=== PATIENT | male | born 1955 | race Caucasian/White ===

== ENCOUNTER 2016-11-11 23:38 | Inpatient (IN) | payer OTHER ==
[2016-11-11] MEDS ORDERED: ALBUTEROL SO4 0.083% IH SOL 2.5 MG/3 ML VIAL.NEB. NEB PRN (23:47)
[2016-11-11] MEDS ORDERED: methylPREDNISolone NA SUCC 125 MG/2 ML VIAL IVPB ONE (23:47)
[2016-11-11] MEDS ORDERED: ALBUTEROL SO4 2.5/IPRATROPIUM 0.5 INH SOL 3 ML VIAL.NEB. NEB ONE (23:52)
--- NOTE | 2016-11-11 23:54 | PDOC ---
History of Present Illness - History of Present Illness Initial Comments: 11/12/16 00:28 Patient is a 61 year old male with significant medical hx of Down's Syndrome ( severe cognitive deficiency), kyphosis, scoliosis, MR, GI bleeds, anemia, chronic respiratory failure, asthma, sepsis, seizure disorder, GERD, and COPD who has been sent to the ED from [place] for low O2Sat and fever. Patient's O2Sat was between 86-87% on room air at the skilled nursing; his fever was measured at 100.2 while in the ED. senior living papers report the patient has also been excreting thick yellowish tracheal secretions. The patient is nonverbal and unable to provide history. The patient has had a chronic tracheostomy placement since 03/07/16. Patient was admitted last month for aspiration pneumonia. 11/12/16 01:35 The patient is normally maintained at 3-4 liters of O2 for his tracheostomy but today the patient's pulse oximetry was unable to get above 88% with 4 liters. Patient also has had copious amounts of tracheal secretions. <Anais Santoyo - Last Filed: 11/12/16 01:35> <Maryam Montejo - Last Filed: 11/12/16 02:25> - General Stated Complaint: DIFFICULTY BREATHING Time Seen by Provider: 11/11/16 23:41 Past History <Anais Santoyo - Last Filed: 11/12/16 01:35> - Past Medical History Anemia: Yes Asthma: Yes COPD: Yes Disorders: Yes (GERD) Seizures: Yes - Immunization History Immunization Up to Date: Yes - Psycho/Social/Smoking Cessation Hx Anxiety: No Suicidal Ideation: No Smoking History: Unknown if ever smoked Have you smoked in the past 12 months: No Hx Alcohol Use: No Drug/Substance Use Hx: No Substance Use Type: None <Maryam Montejo - Last Filed: 11/12/16 02:25> - Past Medical History Allergies/Adverse Reactions: Allergies Allergy/AdvReac Type Severity Reaction Status Date / Time No Known Allergies Allergy Verified 10/02/16 20:22 Home Medications: Ambulatory Orders Albuterol 2.5/Ipratropium 0.5 [Duoneb -] 1 neb IH QID 05/02/16 Levetiracetam [Keppra Oral Solution -] 500 mg GT BID 05/02/16 Glycopyrrolate [Robinul -] 1 mg PEG TID 05/03/16 Magnesium Hydrox 2400MG/30Ml [Milk of Magnesia -] 30 ml GT ONCE PRN 05/03/16 Metoclopramide HCl 10 mg PEG BID 05/03/16 Zinc Oxide 0 gm TP BID PRN 05/03/16 Montelukast Na [Singulair -] 10 mg GT HS 07/21/16 Ferrous Sulfate [Feosol] 325 mg NGT BID #60 tablet 07/23/16 Budesonide [Pulmicort 0.25 mg Nebulizer -] 1 neb NEB BID 08/27/16 Clotrimazole [Lotrimin -] 1 applic TP BID 08/27/16 Ranitidine [Zantac -] 150 mg GT BID 08/27/16 Scopolamine Hydrobromide [Transderm-Scop -] 1 patch TD Q72H 08/27/16 Sucralfate Oral Suspension [Carafate Oral Suspension -] 1 gm GT BID 08/27/16 Unobtainable 09/28/16 Review of Systems - Review of Systems Comments:: 11/12/16 00:39 Unable to assess. <Anais Santoyo - Last Filed: 11/12/16 01:35> *Physical Exam - Vital Signs Last Vital Signs Temp Pulse Resp BP Pulse Ox 100.2 F H 99 H 105/46 100 11/11/16 23:58 11/11/16 23:58 11/11/16 23:58 11/11/16 23:58 - Physical Exam Comments: 11/12/16 00:40 GENERAL: Non-verbal. Profound mental retardation. No acute distress. HEENT: Normocephalic, atraumatic. PERRLA, EOMI. No conjunctival pallor. Sclera are non- icteric. Moist mucous membranes. Oropharynx is clear. NECK: Supple. Full ROM. No JVD. Carotid pulses 2+ and symmetric, without bruits. No thyromegaly. No lymphadenopathy. CARDIOVASCULAR: Regular rate and rhythm. No murmurs, rubs, or gallops. Distal pulses are 2+ and symmetric. PULMONARY: Chronic tracheostomy. Accessory muscle use with respiration. Rhonchorous breath sounds to all four quadrants. ABDOMINAL: G-tube placement. Soft. Non-tender. Non-distended. No rebound or guarding. No organomegaly. Normoactive bowel sounds. MUSCULOSKELETAL: Contracted limbs. No CVA tenderness. EXTREMITIES: Contracted limbs. No cyanosis. No clubbing. No edema. No calf tenderness. SKIN: Warm and dry. Normal capillary refill. No rashes. No jaundice. NEUROLOGICAL: Non-verbal. Non-ambulatory. <Anais Santoyo - Last Filed: 11/12/16 01:35> ED Treatment Course - LABORATORY CBC & Chemistry Diagram: 11/12/16 00:27 11/12/16 00:27 - Medications Given in the ED: ED Medications Discontinued Medications Generic Name Dose Route Start Last Admin Trade Name Freq PRN Reason Stop Dose Admin Methylprednisolone Sodium Succinate 125 mg 11/11/16 23:47 11/12/16 00:03 Solu-Medrol - IVPB 11/11/16 23:48 125 mg ONCE ONE Administration <Anais Santoyo - Last Filed: 11/12/16 01:35> - LABORATORY CBC & Chemistry Diagram: 11/12/16 00:27 11/12/16 00:27 - RADIOLOGY Radiology Studies Ordered: Category Date Time Status CHEST X-RAY PORTABLE* [RAD] Stat Radiology 11/11/16 23:48 Ordered <Maryam Montejo - Last Filed: 11/12/16 02:25> Medical Decision Making - Medical Decision Making 11/12/16 02:21 61-year-old male brought in by ambulance from [facility] for hypoxia and a tracheitis. He normally is maintained on 3-4 L O2 trach collar and has pulse ox of 93% or greater normally -However this evening they noted that on 4 L O2. Hhs pulse ox was only in the mid 80s and he had copious thick yellow trach secretions and required multiple episodes of suctioning Temperature 100.2 Paramedics suctioned about 100 mL of thick secretions from his trach -. Chest x-rays no appreciable infiltrate. CBC shows a normal white count of 7 EKG was normal sinus rhythm Patient is receiving pulmonary toilet/trach suctioning/, respiratory treatments , but still requires increased oxygenation to maintain a pulse ox above 90% Will admit to hospitalist 11/12/16 02:25 Note that the patient is DNR and that his sister is actively involved in making medical decisions on his behalf. She is his healthcare proxy <Maryam Montejo - Last Filed: 11/12/16 02:25> *DC/Admit/Observation/Transfer - Attestations Scribe Attestion: 11/12/16 00:44 Documentation prepared by Anais Santoyo, acting as senior medical director for Maryam Montejo MD. <Anais Santoyo - Last Filed: 11/12/16 01:35> - Discharge Dispostion Admit: Yes <Maryam Montejo - Last Filed: 11/12/16 02:25> Diagnosis at time of Disposition: Asthma exacerbation, Tracheitis, Down syndrome, Acute on chronic respiratory failure with hypoxia and hypercapnia - Referrals Referrals: Landry Thomas Jr [Primary Care Provider] -
[2016-11-12 00:02] VITALS: BMI 24.0
[2016-11-12] MEDS ORDERED: methylPREDNISolone NA SUCC 125 MG/2 ML VIAL ONE (00:04)
[2016-11-12] MEDS ORDERED: ALBUTEROL SO4 0.083% IH SOL 2.5 MG/3 ML VIAL.NEB. NEB ONE (00:28)
[2016-11-12 00:37] LABS: BASOPHIL 2.1 % (0-2.0); MCHC 31.2 g/dl (32.0-35.9); MEAN CELL VOLUME 89.8 fl (80-96); MEAN PLT VOLUME 8.4 fl (7.5-11.1); NEUTROPHILS 61.9 % (42.8-82.8); PLATELET COUNT 326 K/MM3 (134-434); RDW 18.8 % (11.9-15.9); WHITE BLOOD COUNT 7.4 K/mm3 (4.0-10.0)
[2016-11-12 01:02] LABS: ALBUMIN 2.5 g/dl (3.4-5.0); ALK PHOS 71 U/L (45-117); ANION GAP 9 (8-16); BILIRUBIN,TOTAL 0.2 mg/dL (0.2-1.0); CALCIUM 7.9 mg/dL (8.5-10.1); CO2 27 mmol/L (21-32); CREATININE 0.6 mg/dL (0.7-1.3); GLUCOSE,RANDOM 96 mg/dL (74-106); SGOT/AST 18 U/L (15-37); SGPT/ALT 25 U/L (12-78)
[2016-11-12 01:03] LABS: TROPONIN I < 0.02 ng/ml (0.00-0.05)
--- NOTE | 2016-11-12 01:36 | PN ---
<ShemarMeme - Last Filed: 11/12/16 05:12> Teaching Attending Note ATTENDING PHYSICIAN STATEMENT I saw and evaluated the patient. I reviewed the resident's note and discussed the case with the resident. I agree with the resident's findings and plan as documented. SUBJECTIVE: 61 yo M, nonverbal, poor historian, who presents to the ED from [facility] for hypoxia and fever. As per intermediate record, the patient is normally maintained at 3-4 liters of O2 for his tracheostomy but today the patient's pulse oximetry was 88% with 4 liters O2. Paramedics noted increased tracheal secretions, around the trach collar, yellow and thick. Patient was brought in for further evaluation. The patient has a tracheostomy tube placed on 03/07/16. PMHx: Down's Syndrome (severe cognitive deficiency), kyphosis, scoliosis, MR, GI bleeds, anemia, chronic respiratory failure, asthma, sepsis, seizure disorder , GERD, and COPD OBJECTIVE: Physical Last Vital Signs Temp Pulse Resp BP Pulse Ox 100.2 F H 99 H 22 105/46 100 11/11/16 23:58 11/11/16 23:58 11/11/16 23:58 11/11/16 23:58 11/11/16 23:58 GENERAL: +Awake, nonverbal, sever MR. In no acute distress HEENT: Atraumatic. PERRLA, EOMI. Moist mucosa. No JVD LUNGS: + coarse breath sounds. + diffuse ronchi. HEART: + Tachycardic regular rate and rhythm, normal S1 and S2, no murmurs, rubs or gallops, peripheral pulses normal and equal bilaterally. ABDOMEN: Soft, nontender, normoactive bowel sounds. No guarding, no rebound. No masses EXTREMITIES: Normal inspection, Normal range of motion, no edema. No clubbing or cyanosis. NEUROLOGICAL: Cranial nerves II through XII grossly intact. Normal speech, normal gait, no focal sensorimotor deficits SKIN: Warm, Dry, normal turgor, no rashes or lesions noted. PSYCHIATRIC: Sever MR and nonverbal, unable to assess CBCD WBC 7.4 K/mm3 (4.0-10.0) D 11/12/16 00:27 RBC 3.43 M/mm3 (4.00-5.60) L 11/12/16 00:27 Hgb 9.6 GM/dL (11.7-16.9) L 11/12/16 00:27 Hct 30.8 % (35.4-49) L 11/12/16 00:27 MCV 89.8 fl (80-96) 11/12/16 00:27 MCHC 31.2 g/dl (32.0-35.9) L 11/12/16 00:27 RDW 18.8 % (11.9-15.9) H D 11/12/16 00:27 Plt Count 326 K/MM3 (134-434) D 11/12/16 00:27 MPV 8.4 fl (7.5-11.1) D 11/12/16 00:27 CMP Sodium 141 mmol/L (136-145) 11/12/16 00:27 Potassium 4.2 mmol/L (3.5-5.1) 11/12/16 00: Chloride 105 mmol/L (98-107) 11/12/16 00:27 Carbon Dioxide 27 mmol/L (21-32) 11/12/16 00:27 Anion Gap 9 (8-16) 11/12/16 00:27 BUN 13 mg/dL (7-18) D 11/12/16 00:27 Creatinine 0.6 mg/dL (0.7-1.3) L 11/12/16 00:27 Creat Clearance w eGFR > 60 (>60) 11/12/16 00:27 Calcium 7.9 mg/dL (8.5-10.1) L 11/12/16 00:27 Total Bilirubin 0.2 mg/dL (0.2-1.0) D 11/12/16 00:27 AST 18 U/L (15-37) 11/12/16 00:27 ALT 25 U/L (12-78) D 11/12/16 00:27 Alkaline Phosphatase 71 U/L (45-117) D 11/12/16 00:27 Total Protein 6.0 g/dl (6.4-8.2) L 11/12/16 00:27 Albumin 2.5 g/dl (3.4-5.0) L 11/12/16 00:27 Documentation prepared by Meme Staton, acting as medical delivery technician for Deepa Porras MD. <Deepa Porras - Last Filed: 11/12/16 07:02> Teaching Attending Note Name of Resident: Iva Jay ATTENDING PHYSICIAN STATEMENT A/P COPD exacerbation with possible HCAP Duoneb Humidified air Vanco, and zosyn tylenol VA PRN F/U Sputum and bld cultures Scopolamine patch and continue home medications
[2016-11-12] MEDS ORDERED: VANCOMYCIN 1,000 MG in DEXTROSE 5%-WATER - 250 ML IVPB ONE (03:00)
[2016-11-12] MEDS ORDERED: SODIUM CHLORIDE 1,000 ML IV SCH ×2 (03:00→16:10)
[2016-11-12] MEDS ORDERED: ALBUTEROL SO4 0.083% IH SOL 2.5 MG/3 ML VIAL.NEB. NEB SCH (03:00)
[2016-11-12] MEDS ORDERED: LEVOFLOXACIN 750 MG IVPB 150 ML IVPB ONE (03:01)
[2016-11-12] MEDS ORDERED: PIPERACILLIN/TAZOB 4.5 GM/100 ML PRE-DOCKED IVPB ONE ×2 (03:01→06:00)
--- NOTE | 2016-11-12 03:02 | HP ---
Addendum entered and electronically signed by Iva Jay RES 11/12/16 07: 21: guaiac + on rectal exam Addendum entered and electronically signed by Iva Jay RES 11/12/16 06: 31: Added to problem list Acute hypoxic respiratory failure -supplemental O2 -nebs -suction -Pulm consult -steroids -abx Original Note: CHIEF COMPLAINT: unable to verbalize PCP: Dr Thomas HISTORY OF PRESENT ILLNESS: This is a 61 yo M with PMH of Down's Syndrome with severe MR, COPD, asthma, chronic respiratory failure with trach (03/07/16), recent hospitalization for aspiration PNA last mo, GERD, kyphosis, scoliosis, GI bleeds, PEG, anemia, sepsis and seizure d/o who presents from [place] due to hypoxia 87% in baseline 4L and fever 100.2. Patient has also been noted to have increased thick yellow tracheal secretions. He is nonverbal and history is obtained from [facility] records and [facility]. Sister is health care proxy. Last mo he was treated by Dr Sims with clinda and zosyn. Also seen by Dr Claros ER course was notable for: (1)labs (2)cxr (3)albuterol, medrol 125 Recent Travel: none PAST MEDICAL HISTORY: as above PAST SURGICAL HISTORY: as above Social History: [place] resident Smoking: none Alcohol:none Drugs: none Family History: mother renal family; brother multiple myeloma Allergies No Known Allergies Allergy (Verified 10/02/16 20:22) HOME MEDICATIONS: Medication Instructions Recorded Albuterol 2.5/Ipratropium 0.5 1 neb IH QID 05/02/16 [Duoneb -] Levetiracetam [Keppra Oral 500 mg GT BID 05/02/16 Solution -] Glycopyrrolate [Robinul -] 1 mg PEG TID 05/03/16 Magnesium Hydrox 2400MG/30Ml [Milk 30 ml GT ONCE PRN 05/03/16 of Magnesia -] Metoclopramide HCl 10 mg PEG BID 05/03/16 Zinc Oxide 0 gm TP BID PRN 05/03/16 Montelukast Na [Singulair -] 10 mg GT HS 07/21/16 Ferrous Sulfate [Feosol] 325 mg NGT BID #60 tablet 07/23/16 Budesonide [Pulmicort 0.25 mg 1 neb NEB BID 08/27/16 Nebulizer -] Clotrimazole [Lotrimin -] 1 applic TP BID 08/27/16 Ranitidine [Zantac -] 150 mg GT BID 08/27/16 Scopolamine Hydrobromide 1 patch TD Q72H 08/27/16 [Transderm-Scop -] Sucralfate Oral Suspension 1 gm GT BID 08/27/16 [Carafate Oral Suspension -] Unobtainable 09/28/16 Selected Entries 11/11/16 23:58 Temperature 100.2 F H Pulse Rate 99 H Blood Pressure 105/46 O2 Sat by Pulse 100 Oximetry (%) Weight 115 lb REVIEW OF SYSTEMS unable to obtain as patient is nonverbal Laboratory Tests 11/12/16 11/12/16 11/12/16 00:27 00:27 00:27 WBC 7.4 D Hgb 9.6 L Hct 30.8 L Plt Count 326 D Sodium 141 Potassium 4.2 Chloride 105 Carbon Dioxide 27 Anion Gap 9 BUN 13 D Creatinine 0.6 L Creat Clearance w eGFR > 60 Random Glucose 96 Lactic Acid Calcium 7.9 L Total Bilirubin 0.2 D AST 18 ALT 25 D Alkaline Phosphatase 71 D Creatine Kinase 158 Creatine Kinase Index 1.1 CK-MB (CK-2) 1.781 CK-MB (CK-2) Rel Index Troponin I < 0.02 D Total Protein 6.0 L Albumin 2.5 L 11/12/16 11/12/16 00:27 01:40 WBC Hgb Hct Plt Count Sodium Potassium Chloride Carbon Dioxide Anion Gap BUN Creatinine Creat Clearance w eGFR Random Glucose Lactic Acid 1.198 Calcium Total Bilirubin AST ALT Alkaline Phosphatase Creatine Kinase Creatine Kinase Index CK-MB (CK-2) CK-MB (CK-2) Rel Index Cancelled Troponin I Total Protein Albumin PHYSICAL EXAMINATION GENERAL: Awake, nonverbal, sever MR HEAD: Normal with no signs of trauma. EYES: Pupils equal, round and reactive to light, extraocular movements intact, sclera anicteric, conjunctiva clear. EARS, NOSE, THROAT: Moist mucous membranes. NECK: supple without lymphadenopathy, JVD, or masses. LUNGS: coarse breath sounds, diffuse ronchi HEART: tachy rate and reg rhythm, normal S1 and S2 ABDOMEN: Soft, not distended, normoactive bowel sounds MUSCULOSKELETAL: No bony deformities UPPER EXTREMITIES: 2+ pulses, warm, well-perfused. No peripheral edema. LOWER EXTREMITIES: 2+ pulses, warm, well-perfused. No peripheral edema. NEUROLOGICAL: face grossly symmetrical PSYCHIATRIC: sever MR and nonverbal, unable to assess SKIN: Warm, dry ASSESSMENT/PLAN: This is a 61 yo M with PMH of Down's Syndrome with severe MR, COPD, asthma, chronic respiratory failure with trach (03/07/16), recent hospitalization for aspiration PNA last mo, GERD, kyphosis, scoliosis, GI bleeds, anemia, sepsis and seizure d/o who presents from [place] due to hypoxia 87% in baseline 4L and fever 100.2. increased thick yellow tracheal secretions. CXR: RML atelectasis with possible increased infiltrate compared to last one Institution acquired PNA -ran [facility] zosyn -NS@75 -suctions -nebs -daily cxr -blood and sputum culture, urine culture -on 10L now, wean to baseline 4L -ID consult COPD exacerbation -duoneb qid -singulair 10 -s/p medrol 125; start medrol 40 q6h; taper -abx -Pulm consult Anemia -at baseline -h/x GIB -guaiac + last mo -previously evaluated by Dr Sahni -family against endoscopic intervention -stool guaiac -trend h/h -transfuse as needed MR -continue home meds -hold Jevity feeds Asthma -nebs SZ d/o -kedimitrira FEN NS@ 75 lytes stable DVT GI PPX:hold a/c, scd, ppi jevity through ped Dispo: admit to [facility] Problem List - Problem (1) Anemia due to GI blood loss Code(s): D50.0 - IRON DEFICIENCY ANEMIA SECONDARY TO BLOOD LOSS (CHRONIC) (2) Aspiration pneumonia Code(s): J69.0 - PNEUMONITIS DUE TO INHALATION OF FOOD AND VOMIT (3) Down syndrome Code(s): Q90.9 - DOWN SYNDROME, UNSPECIFIED (4) Pneumonia Code(s): J18.9 - PNEUMONIA, UNSPECIFIED ORGANISM (5) Tracheostomy dependence Code(s): Z93.0 - TRACHEOSTOMY STATUS (6) Airway clearance impairment Code(s): R06.89 - OTHER ABNORMALITIES OF BREATHING (7) DVT prophylaxis Code(s): [id number] - (8) Flexion contractures Code(s): M24.50 - CONTRACTURE, UNSPECIFIED JOINT (9) GI bleed Code(s): K92.2 - GASTROINTESTINAL HEMORRHAGE, UNSPECIFIED (10) Mental retardation Code(s): F79 - UNSPECIFIED INTELLECTUAL DISABILITIES (11) Respiratory distress Code(s): R06.00 - DYSPNEA, UNSPECIFIED (12) Respiratory failure Code(s): J96.90 - RESPIRATORY FAILURE, UNSP, UNSP W HYPOXIA OR HYPERCAPNIA (13) Anemia Code(s): D64.9 - ANEMIA, UNSPECIFIED (14) Seizure disorder Code(s): G40.909 - EPILEPSY, UNSP, NOT INTRACTABLE, WITHOUT STATUS EPILEPTICUS (15) COPD exacerbation Code(s): J44.1 - CHRONIC OBSTRUCTIVE PULMONARY DISEASE W (ACUTE) EXACERBATION (16) Hospital-acquired pneumonia Code(s): J18.9 - PNEUMONIA, UNSPECIFIED ORGANISM Visit type - Emergency Visit Emergency Visit: Yes ED Registration Date: 11/12/16 Care time: The patient presented to the Emergency Department on the above date and was hospitalized for further evaluation of their emergent condition. - New Patient This patient is new to me today: Yes Date on this admission: 11/12/16 - Critical Care Critical Care patient: No
[2016-11-12] MEDS: methylPREDNISolone NA SUCC 40 MG/1 ML VIAL IVPB SCH ×2 (03:14→09:56)
[2016-11-12] MEDS ORDERED: VANCOMYCIN 1 GRAM (PRE-DOCKED) 250 ML IVPB ONE (03:15)
[2016-11-12] MEDS ORDERED: LEVOFLOXACIN 250 MG IVPB 50 ML IVPB ONE (03:16)
[2016-11-12] MEDS ORDERED: LEVOFLOXACIN 500 MG IVPB 100 ML IVPB ONE (03:16)
[2016-11-12] MEDS ORDERED: BISACODYL 10 MG SUPP.RECT RC PRN (05:19)
[2016-11-12] MEDS ORDERED: HEPARIN NA (PORCINE) 5,000 UNITS/ML 1ML VIAL SQ SCH (06:00)
[2016-11-12] MEDS: ALBUTEROL SO4 2.5/IPRATROPIUM 0.5 INH SOL 3 ML VIAL.NEB. NEB SCH ×3 (06:52→17:20)
[2016-11-12] MEDS ORDERED: PIPERACILLIN/TAZOB 3.375 GM 3.375 GM in DEXTROSE 5%-WATER - 50 ML IVPB ONE (07:20)
[2016-11-12 08:14] LABS: MCH 28.7 pg (25.7-33.7); MCHC 31.4 g/dl (32.0-35.9); MEAN CELL VOLUME 91.3 fl (80-96); MEAN PLT VOLUME 8.4 fl (7.5-11.1); PLATELET COUNT 315 K/MM3 (134-434); RDW 18.5 % (11.9-15.9); WHITE BLOOD COUNT 5.7 K/mm3 (4.0-10.0)
[2016-11-12 08:42] LABS: CALCIUM 8.3 mg/dL (8.5-10.1); CREATININE 0.8 mg/dL (0.7-1.3); MAGNESIUM 2.3 mg/dL (1.8-2.4); PHOSPHOROUS 3.6 mg/dL (2.5-4.9)
--- NOTE | 2016-11-12 09:35 | EKG ---
Test Reason : Blood Pressure : / mmHG Vent. Rate : 095 BPM Atrial Rate : 095 BPM P-R Int : 124 ms QRS Dur : 068 ms QT Int : 356 ms P-R-T Axes : 031 005 012 degrees QTc Int : 447 ms NORMAL SINUS RHYTHM NORMAL ECG WHEN COMPARED WITH ECG OF 02-OCT-2016 22:04, NO SIGNIFICANT CHANGE WAS FOUND Confirmed by PAMELA RICHARDSON MD ([id number]) on 11/12/2016 9:34:57 AM Referred By: Confirmed By:PAMELA RICHARDSON MD
[2016-11-12] MEDS: levETIRAcetam 500 MG/5 ML INJECTION VIAL IVPB SCH ×2 (09:59→22:35)
[2016-11-12] MEDS ORDERED: PANTOPRAZOLE SODIUM 40 MG in SODIUM CHLORIDE 100 ML IVPB SCH (10:00)
[2016-11-12] MEDS ORDERED: PANTOPRAZOLE SOD 40 MG SUSPENSION PACKET GT SCH (10:00)
[2016-11-12] MEDS: PANTOPRAZOLE SODIUM 40 MG/100 ML PRE-DOCKED IVPB SCH ×2 (10:00→18:54)
[2016-11-12] MEDS: SILVER SULFADIAZINE 1% TOP CREAM 400 GM JAR TP SCH ×2 (10:00→21:41)
[2016-11-12] MEDS: CHOLESTYRAMINE/ASPARTAME 4 GM PACKET GT SCH ×2 (10:00→22:40)
[2016-11-12] MEDS: SUCRALFATE 1 GM/10 ML UNIT DOSE CUPS GT SCH ×2 (10:00→21:38)
[2016-11-12] MEDS ORDERED: levETIRAcetam 500 MG/5 ML ORAL SOLUTION (UNIT-DOSE CUPS) GT SCH (10:00)
[2016-11-12] MEDS: GLYCOPYRROLATE 1 MG TABLET GT SCH ×3 (10:01→21:40)
[2016-11-12] MEDS: CLOTRIMAZOLE 1%TOPICAL SOLUTION 30 ML BOTTLE TP SCH ×2 (10:01→21:42)
[2016-11-12] MEDS: SCOPOLAMINE HYDROBROMIDE 1 PATCH PATCH.TD72 TD SCH (10:02)
[2016-11-12] MEDS: RANITIDINE HCL 150 MG/10 ML UNIT-DOSE CUP GT SCH ×2 (10:02→21:38)
[2016-11-12] MEDS ORDERED: ALBUTEROL SO4 2.5/IPRATROPIUM 0.5 INH SOL 3 ML VIAL.NEB. NEB PRN (10:25)
--- NOTE | 2016-11-12 10:41 | CONSULT ---
Consult Consult Specialty:: PULMONARY Referred by:: JERAD - History of Present Illness Chief Complaint: CONGESTED COUGH History of Present Illness: Patient is a 61 year old male with significant medical hx of Down's Syndrome ( severe cognitive deficiency), kyphosis, scoliosis, MR, GI bleeds, anemia, chronic respiratory failure, asthma, sepsis, seizure disorder, GERD, and COPD who has been sent to the ED from [place] for low O2Sat and fever. Patient's O2Sat was between 86-87% on room air at the [facility]; his fever was measured at 100.2 while in the ED. retirement papers report the patient has also been excreting thick yellowish tracheal secretions. The patient is nonverbal and unable to provide history. The patient has had a chronic tracheostomy placement since 03/07/16. Patient was admitted last month for aspiration pneumonia. - History Source History Provided By: Medical Record Limitations to Obtaining History: Clinical Condition - Past Medical History BOARD MEMBER: Yes: Seizure, Other (Downs Syndrome with severe cognitive deficiency) Pulmonary: Yes: Asthma, COPD Gastrointestinal: Yes: Constipation, GERD, Other (peg in place, chronic GI bleeding and propensity to fecal impaction) Heme/Onc: Yes: Anemia Psych: Yes: Other (Down's syndrome) Musculoskeletal: Yes: Other (scoliosis, atlantoaxial cervical spinal instability , contractures) - Past Surgical History Past Surgical History: Yes: Colonoscopy, Upper Endoscopy Additional Surgical History: TRACHEOSTOMY - Alcohol/Substance Use Hx Alcohol Use: No - Smoking History Smoking history: Never smoked Have you smoked in the past 12 months: No - Social History Usual Living Arrangement: Halfway ADL: Support Services Occupation: disabled History of Recent Travel: No Home Medications - Allergies Allergies/Adverse Reactions: Allergies Allergy/AdvReac Type Severity Reaction Status Date / Time No Known Allergies Allergy Verified 10/02/16 20:22 - Home Medications Home Medications: Ambulatory Orders Albuterol 2.5/Ipratropium 0.5 [Duoneb -] 1 neb IH QID 05/02/16 Levetiracetam [Keppra Oral Solution -] 500 mg GT BID 05/02/16 Glycopyrrolate [Robinul -] 1 mg GT TID 05/03/16 Magnesium Hydrox 2400MG/30Ml [Milk of Magnesia -] 30 ml GT DAILY PRN 05/03/16 Metoclopramide HCl 10 mg GT BID 05/03/16 Zinc Oxide 1 applic TP BID PRN 05/03/16 Montelukast Na [Singulair -] 10 mg GT HS 07/21/16 Budesonide [Pulmicort 0.25 mg Nebulizer -] 1 neb NEB BID 08/27/16 Clotrimazole [Lotrimin -] 1 applic TP BID 08/27/16 Ranitidine [Zantac -] 150 mg GT BID 08/27/16 Scopolamine Hydrobromide [Transderm-Scop -] 1 patch TD Q72H 08/27/16 Sucralfate Oral Suspension [Carafate Oral Suspension -] 1 gm GT BID 08/27/16 Bisacodyl Suppository [Dulcolax Suppository -] 10 mg RC DAILY PRN 11/12/16 Cholestyramine/Aspartame [Questran Light Packet -] 4 gm GT BID 11/12/16 Ferrous Sulfate [Feosol] 325 mg GT BID 11/12/16 Lactobacillus Acidophilus [Acidophilus] 1 each GT DAILY 11/12/16 Silver Sulfadiazine 1% Top Cr [Silvadene -] 1 applic TP BID 11/12/16 Family Disease History - Family Disease History Family Disease History: CA: Brother ( multiple myeloma), Other: Father ( colon polyp), Mother ( renal failure age 37) Review of Systems Unable to obtain ROS, reason: UNABLE Physical Exam Vital Sings: Vital Signs Temperature 99.1 F 11/12/16 04:58 Pulse Rate 90 11/12/16 04:58 Respiratory Rate 18 11/12/16 05:09 Blood Pressure 99/57 11/12/16 04:58 O2 Sat by Pulse Oximetry (%) 94 L 11/12/16 05:09 Constitutional: Yes: Pallor Eyes: Yes: Conjunctiva Clear HENT: Yes: Nasal Congestion Neck: Yes: Supple, Other (TRACHEOSTOMY) Cardiovascular: Yes: Regular Rate and Rhythm Respiratory: Yes: Diminished, Poor Air Entry, Rhonchi Gastrointestinal: Yes: Soft Edema: No Labs: CBC, BMP 11/12/16 07:45 11/12/16 07:45 REVIEWED Imaging - Results Chest X-ray: Image Reviewed EKG: Report Reviewed Problem List - Problems (1) Acute on chronic respiratory failure with hypoxia and hypercapnia Code(s): J96.21 - ACUTE AND CHRONIC RESPIRATORY FAILURE WITH HYPOXIA J96.22 - ACUTE AND CHRONIC RESPIRATORY FAILURE WITH HYPERCAPNIA (2) Anemia due to GI blood loss Code(s): D50.0 - IRON DEFICIENCY ANEMIA SECONDARY TO BLOOD LOSS (CHRONIC) (3) COPD exacerbation Code(s): J44.1 - CHRONIC OBSTRUCTIVE PULMONARY DISEASE W (ACUTE) EXACERBATION (4) Down syndrome Code(s): Q90.9 - DOWN SYNDROME, UNSPECIFIED Assessment/Plan REQUIRES FREQUENT SUCTIONING IV ANTIBIOTICS BRONCHODILATION O2 SUPPLEMENTATION HAVE ORDERED INFLU SWAB MONITOR LYTES/HGB Yasmeen GAVIRIA MD
[2016-11-12] MEDS: BUDESONIDE 0.25 MG/2ML INH SUSP VIAL NEB SCH ×2 (11:36→22:27)
[2016-11-12] MEDS: PANTOPRAZOLE SODIUM 80 MG in SODIUM CHLORIDE 100 ML IVPB SCH ×2 (13:01→21:39)
--- NOTE | 2016-11-12 17:01 | CONSULT ---
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 Patient has also been noted to have increased thick yellow tracheal secretions. He is nonverbal and history is obtained from long term records and emr. Sister is health care proxy. - History Source History Provided By: Medical Record Limitations to Obtaining History: Clinical Condition - Past Medical History [employer] MANAGER: Yes: Seizure, Other (Downs Syndrome with severe cognitive deficiency) Pulmonary: Yes: Asthma, COPD Gastrointestinal: Yes: Constipation, GERD, Other (peg in place, chronic GI bleeding and propensity to fecal impaction) Psych: Yes: Other (Down's syndrome) Musculoskeletal: Yes: Other (scoliosis, atlantoaxial cervical spinal instability , contractures) - Past Surgical History Past Surgical History: Yes: Colonoscopy, Upper Endoscopy Additional Surgical History: TRACHEOSTOMY - Alcohol/Substance Use Hx Alcohol Use: No - Smoking History Smoking history: Never smoked Have you smoked in the past 12 months: No - Social History Usual Living Arrangement: Custodial ADL: Support Services Occupation: disabled History of Recent Travel: No Home Medications - Allergies Allergies/Adverse Reactions: Allergies Allergy/AdvReac Type Severity Reaction Status Date / Time No Known Allergies Allergy Verified 10/02/16 20:22 - Home Medications Home Medications: Ambulatory Orders Albuterol 2.5/Ipratropium 0.5 [Duoneb -] 1 neb IH QID 05/02/16 Levetiracetam [Keppra Oral Solution -] 500 mg GT BID 05/02/16 Glycopyrrolate [Robinul -] 1 mg GT TID 05/03/16 Magnesium Hydrox 2400MG/30Ml [Milk of Magnesia -] 30 ml GT DAILY PRN 05/03/16 Metoclopramide HCl 10 mg GT BID 05/03/16 Zinc Oxide 1 applic TP BID PRN 05/03/16 Montelukast Na [Singulair -] 10 mg GT HS 07/21/16 Budesonide [Pulmicort 0.25 mg Nebulizer -] 1 neb NEB BID 08/27/16 Clotrimazole [Lotrimin -] 1 applic TP BID 08/27/16 Ranitidine [Zantac -] 150 mg GT BID 08/27/16 Scopolamine Hydrobromide [Transderm-Scop -] 1 patch TD Q72H 08/27/16 Sucralfate Oral Suspension [Carafate Oral Suspension -] 1 gm GT BID 08/27/16 Bisacodyl Suppository [Dulcolax Suppository -] 10 mg RC DAILY PRN 11/12/16 Cholestyramine/Aspartame [Questran Light Packet -] 4 gm GT BID 11/12/16 Ferrous Sulfate [Feosol] 325 mg GT BID 11/12/16 Lactobacillus Acidophilus [Acidophilus] 1 each GT DAILY 11/12/16 Silver Sulfadiazine 1% Top Cr [Silvadene -] 1 applic TP BID 11/12/16 Family Disease History - Family Disease History Family Disease History: CA: Brother ( multiple myeloma), Other: Father ( colon polyp), Mother ( renal failure age 37) Review of Systems Unable to obtain ROS, reason: unable Physical Exam Vital Signs: Vital Signs Temperature 97.2 F L 11/12/16 14:16 Pulse Rate 94 H 11/12/16 14:16 Respiratory Rate 22 11/12/16 14:16 Blood Pressure 104/52 11/12/16 14:16 O2 Sat by Pulse Oximetry (%) 96 11/12/16 11:35 Constitutional: Yes: No Distress, Calm, Other (sitter in the room) Eyes: Yes: Conjunctiva Clear Neck: Yes: Other (trach in place) Cardiovascular: Yes: Regular Rate and Rhythm Respiratory: Yes: Poor Air Entry, Rhonchi, Other Gastrointestinal: Yes: Normal Bowel Sounds, Soft, Other (peg tube in place) Musculoskeletal: Yes: Other Extremities: Yes: Other Neurological: Yes: Alert, Other Psychiatric: Yes: Alert Labs: CBC, BMP 11/12/16 07:45 11/12/16 07:45 Imaging - Results Chest X-ray: Report Reviewed, Image Reviewed Cat Scan: Image Reviewed Assessment/Plan patient has to be treated as hcap but i am going to hold of on starting anything except zosyn as this could be asp pna also i am going to wait for the influnza to come back his secretions ar mostly white and thin also awaiting for ct scan resul pna r/o influenza copd anemia MR fever plan continue zosyn' await for cx report will watch fevers await for influenza test
--- NOTE | 2016-11-12 17:43 | PN ---
Physical Exam: SUBJECTIVE: Patient seen and examined Pt is awake, alert but non verbal and not following directions No s.s of acute distress OBJECTIVE: Vital Signs Period Temp Pulse Resp BP Sys/Rowley Pulse Ox Last 24 Hr 97.2 F-99.1 F 60-94 18-22 99-118/52-65 94-99 GENERAL: The patient is awake, alert, and fully oriented, in no acute distress. HEAD: Normal with no signs of trauma. EYES: PERRL, extraocular movements intact, sclera anicteric, conjunctiva clear. No ptosis. ENT: Ears normal, nares patent, oropharynx clear without exudates, moist mucous membranes. NECK: Trachea midline, full range of motion, supple. Trach collar in place with moderate copious yellow sputum LUNGS: diminished lung sounds with upper resp tract congestion, no wheezes, no crackles, no accessory muscle use. HEART: Regular rate and rhythm, S1, S2 without murmur, rub or gallop. ABDOMEN: Soft, nontender, nondistended, normoactive bowel sounds, no guarding, no rebound, no hepatosplenomegaly, no masses. EXTREMITIES: 2+ pulses, warm, well-perfused, no edema. NEUROLOGICAL: Normal speech, gait not observed. PSYCH: Normal mood, normal affect. SKIN: Warm, dry, normal turgor, no rashes or lesions noted Laboratory Results - last 24 hr 11/12/16 11/12/16 11/12/16 06:45 07:45 07:45 WBC 5.7 RBC 3.45 L Hgb 9.9 L Hct 31.5 L MCV 91.3 MCHC 31.4 L RDW 18.5 H Plt Count 315 MPV 8.4 Sodium 140 Potassium 5.1 D Chloride 105 Carbon Dioxide 29 Anion Gap 6 L BUN 13 Creatinine 0.8 D Random Glucose 124 H D Calcium 8.3 L Phosphorus 3.6 Magnesium 2.3 Stool Occult Blood Negative Active Medications Generic Name Dose Route Start Last Admin Trade Name Freq PRN Reason Stop Dose Admin Albuterol/Ipratropium 1 amp 11/12/16 06:00 11/12/16 11:36 Duoneb - NEB 1 amp QIDR ERIN Administration Albuterol/Ipratropium 1 amp 11/12/16 10:25 Duoneb - NEB Q4H PRN SHORTNESS OF BREATH Bisacodyl 10 mg 11/12/16 05:19 11/12/16 13:01 Dulcolax Suppository - RC 10 mg DAILY PRN Administration CONSTIPATION Budesonide 1 amp 11/12/16 10:00 11/12/16 11:36 Pulmicort 0.25 Mg Nebulizer - NEB 1 amp BID ERIN Administration Cholestyramine Resin 4 gm 11/12/16 10:00 11/12/16 10:00 Questran Light Packet - GT 4 gm BID ERIN Administration Clotrimazole 1 applic 11/12/16 10:00 11/12/16 10:01 Lotrimin 1% Solution - TP 1 applic BID ERIN Administration Glycopyrrolate 1 mg 11/12/16 06:00 11/12/16 13:10 Robinul - GT 1 mg TID ERIN Administration Pantoprazole Sodium 80 mg/ 100 mls @ 10 mls/hr 11/12/16 12:00 11/12/16 13:01 Sodium Chloride IVPB 10 mls/hr Q10H ERIN Administration 8 MG/HR Sodium Chloride 1,000 mls @ 42 mls/hr 11/12/16 16:10 Normal Saline - IV ASDIR ERIN Piperacillin Sod/Tazobactam Sod 50 mls @ 100 mls/hr 11/12/16 18:00 Zosyn 3.375gm Ivpb (Pre-Docked) IVPB Q8H-IV ERIN Levetiracetam 500 mg 11/12/16 10:00 11/12/16 09:59 Keppra Injection - IVPB 500 mg BID ERIN Administration Magnesium Hydroxide 30 ml 11/12/16 05:19 Milk Of Magnesia - GT DAILY PRN CONSTIPATION Methylprednisolone Sodium Succinate 40 mg 11/13/16 10:00 Solu-Medrol - IVPB DAILY ERIN Montelukast Sodium 10 mg 11/12/16 22:00 Singulair - GT HS ERIN Ranitidine HCl 150 mg 11/12/16 10:00 11/12/16 10:02 Zantac Oral Solution - GT 150 mg BID ERIN Administration Scopolamine HBr 1 patch 11/12/16 10:00 11/12/16 10:02 Transderm-Scop - TD 1 patch Q72H ERIN Administration Silver Sulfadiazine 1 applic 11/12/16 10:00 11/12/16 10:00 Silvadene - TP 1 applic BID ERIN Administration Sucralfate 1 gm 11/12/16 10:00 11/12/16 10:00 Carafate Oral Suspension - GT 1 gm BID ERNI Administration CBC, BMP 11/12/16 07:45 11/12/16 07:45 Microbiology Laboratory Tests 11/12/16 11/12/16 11/12/16 00:27 00:27 01:40 Hgb Hct Random Glucose Lactic Acid 1.198 Calcium Magnesium Troponin I < 0.02 D Albumin 2.5 L Urine Nitrite Ur Leukocyte Esterase Stool Occult Blood 11/12/16 11/12/16 11/12/16 06:45 07:45 07:45 Hgb 9.9 L Hct 31.5 L Random Glucose 124 H D Lactic Acid Calcium 8.3 L Magnesium 2.3 Troponin I Albumin Urine Nitrite Ur Leukocyte Esterase Stool Occult Blood Negative 11/12/16 17:00 Hgb Hct Random Glucose Lactic Acid Calcium Magnesium Troponin I Albumin Urine Nitrite Negative Ur Leukocyte Esterase Negative Stool Occult Blood CXR 11/12/16 Since 10/08/2016, again noted is old rib trauma, weak inspiration, prominent mediastinum, tracheostomy tube and some central crowding. Follow-up recommended. ASSESSMENT/PLAN: 61 year old male with pmh of COPD, asthma, Chronic respiratory failure with trach (03/07/16), Down syndrome with severe MR present to the ED from [place] due to Hypoxia with O2 sat 87%, increased sputum production, lower grade fever. Hypoxia rt to mucus plug r/o PNA, COPD, Asthma, URI, Influenza CXR with possible increased infiltrate INfluenza A/B blood culture urine culture ID consulted Pulmonology consulted Consider holding antibiotics urine for pneumonia CT chest with contrast Suction Q2h and PRN CT chest w/o contrast Keep O2 sat above 90% Change IV fluid to NS at 42ml/h BNP continue bronchodilators COPD Exacerbation Duoneb Sinugulair Decrease solumedrol to 40mg IV daily pulmonary on case Anemia Hbg 9.9 baseline for the pt It was reported that there was cofee ground material from Gtube but no coffee ground emesis was found by day nurse Stool OB was negative trend hgb On protonix drip Seizure disorder On Keppra FEn fluid: NS 42ml/h Electrolytes: No abnormalities Nutrition: Jevity DVT prophylaxis : SCD Disposition: Pt is DNR/DNI. No aggressive care desired by sister. No antibiotics unless judged absolutely necessary. Family desire comfort care only. Consider DC to [place] after discussion with family and call specialist. Visit type - Emergency Visit Emergency Visit: Yes ED Registration Date: 11/12/16 Care time: The patient presented to the Emergency Department on the above date and was hospitalized for further evaluation of their emergent condition. - New Patient This patient is new to me today: Yes Date on this admission: 11/12/16 - Critical Care Critical Care patient: No - Discharge Referral Referred to [facility] No
--- NOTE | 2016-11-12 17:59 | PN ---
Teaching Attending Note Name of Resident: Yordan Andrews ATTENDING PHYSICIAN STATEMENT I saw and evaluated the patient. I reviewed the resident's note and discussed the case with the resident. I agree with the resident's findings and plan as documented. SUBJECTIVE: unable to provide a hx due to MR OBJECTIVE: NAD, non verbal CV: RRR Lungs : decreased breath sounds at bases , minimal wheezing. no crackles heard. 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 1- Hypoxia : ( acute on chronic hypoxic resp failure ) . likely due to thick secretions and mucous plugging . I am not sure if he has PNA ( if he does it possibly will be either aspiration or HCAP ) . we need to r/o Flu - CT scan of chest to evaluate the RLL ( atelectasis Vs infiltrate ) - zosyn . - Flu swab from tracheal wash - decrease IVF and stop in am , to avoid fluid overload - follow cx - was started on steroids on admission for copd exacerbation . decreased dose to 40 daily. 2- h/o seizure : cont keppra 3- possible Upper GI bleed ( coffee ground seen at PEG this am ) . EGD refused in past . PPI gtt monitor HB dispo : D/W Ivette , patient was made Hospice last admission. sister was called and agrees that pt is hospice. She left Abx and IVF to MD judgement . WIll discuss further with Palliative tomorrow . If family wants to really focus on comfort , and agrees on dc ABx. will transfer back to [place]
[2016-11-12 18:00] LABS: URINE APPEARANCE CLEAR; URINE BILIRUBIN NEGATIVE (NEGATIVE); URINE BLOOD NEGATIVE (NEGATIVE); URINE COLOR LT. YELLOW; URINE GLUCOSE (UA) NEGATIVE (NEGATIVE); URINE KETONE NEGATIVE (NEGATIVE); URINE LEUK ESTERASE NEGATIVE (NEGATIVE); URINE NITRITE NEGATIVE (NEGATIVE); URINE PROTEIN NEGATIVE (NEGATIVE); URINE UROBILINOGEN 0.2 E.U/dl E.U./dl (0.2-1.0)
[2016-11-12] MEDS: PIPERACILLIN/TAZOB 3.375 GM 50 ML IVPB SCH (18:13)
[2016-11-12] MEDS ORDERED: PT OWN MED DRAWER 7, Y5N ONE ×2 (18:56→21:35)
[2016-11-12] MEDS: MONTELUKAST NA 10 MG TABLET GT SCH (21:38)
[2016-11-13] MEDS: ALBUTEROL SO4 2.5/IPRATROPIUM 0.5 INH SOL 3 ML VIAL.NEB. NEB SCH ×5 (00:08→23:01)
[2016-11-13] MEDS: PIPERACILLIN/TAZOB 3.375 GM 50 ML IVPB SCH ×3 (01:47→18:12)
[2016-11-13] MEDS ORDERED: PT OWN MED DRAWER 7, Y5N ONE ×9 (06:02→22:09)
[2016-11-13] MEDS: GLYCOPYRROLATE 1 MG TABLET GT SCH ×3 (06:23→22:14)
--- NOTE | 2016-11-13 07:40 | DS ---
Physical Exam: SUBJECTIVE: Patient seen and examined no major event overnight Pt was moved from 4th to 8th floor Secretion clearing up, chnageing from yellow to white no fever or chills no vomiting OBJECTIVE: Vital Signs Period Temp Pulse Resp BP Sys/Rowley Pulse Ox Last 24 Hr 97.2 F-98.6 F 60-100 20-22 104-118/52-65 96-96 PHYSICAL EXAM GENERAL: The patient is awake, alert, and fully oriented, in no acute distress. HEAD: Normal with no signs of trauma. EYES: PERRL, extraocular movements intact, sclera anicteric, conjunctiva clear. No ptosis. ENT: Ears normal, nares patent, oropharynx clear without exudates, moist mucous membranes. NECK: Trachea midline, full range of motion, supple. Trach collar in place with moderate copious yellow sputum LUNGS: upper resp tract congestion, diminished lung sounds b/l, no wheezes, no crackles, no accessory muscle use. HEART: Regular rate and rhythm, S1, S2 without murmur, rub or gallop. ABDOMEN: Soft, nontender, nondistended, normoactive bowel sounds, no guarding, no rebound, no hepatosplenomegaly, no masses. EXTREMITIES: 2+ pulses, warm, well-perfused, no edema. NEUROLOGICAL: Normal speech, gait not observed. PSYCH: Normal mood, normal affect. SKIN: Warm, dry, normal turgor, no rashes or lesions noted. Redness of b/l foot with s LABS Laboratory Results - last 24 hr 11/12/16 11/12/16 11/12/16 06:45 07:45 07:45 WBC 5.7 RBC 3.45 L Hgb 9.9 L Hct 31.5 L MCV 91.3 MCHC 31.4 L RDW 18.5 H Plt Count 315 MPV 8.4 Sodium 140 Potassium 5.1 D Chloride 105 Carbon Dioxide 29 Anion Gap 6 L BUN 13 Creatinine 0.8 D Random Glucose 124 H D Calcium 8.3 L Phosphorus 3.6 Magnesium 2.3 Urine Color Urine Appearance Urine pH Ur Specific [place] Urine Protein Urine Glucose (UA) Urine Ketones Urine Blood Urine Nitrite Urine Bilirubin Urine Urobilinogen Ur Leukocyte Esterase Stool Occult Blood Negative 11/12/16 17:00 WBC RBC Hgb Hct MCV MCHC RDW Plt Count MPV Sodium Potassium Chloride Carbon Dioxide Anion Gap BUN Creatinine Random Glucose Calcium Phosphorus Magnesium Urine Color Lt. yellow Urine Appearance Clear Urine pH 6.0 Ur Specific [place] 1.010 Urine Protein Negative Urine Glucose (UA) Negative Urine Ketones Negative Urine Blood Negative Urine Nitrite Negative Urine Bilirubin Negative Urine Urobilinogen 0.2 e.u/dl Ur Leukocyte Esterase Negative Stool Occult Blood CBC, BMP 11/12/16 07:45 11/12/16 07:45 Microbiology 11/12/16 18:30 Nasopharyngeal Swab Influenza Types A,B Antigen (GILMAR) - Final 11/12/16 18:30 Nasopharyngeal Swab - Final 11/12/16 01:40 Blood - Peripheral Venous Blood Culture - Preliminary NO GROWTH OBTAINED AFTER 24 HOURS, INCUBATION TO CONTINUE FOR 4 DAYS. 11/12/16 01:40 Blood - Peripheral Venous Blood Culture - Preliminary NO GROWTH OBTAINED AFTER 24 HOURS, INCUBATION TO CONTINUE FOR 4 DAYS. Laboratory Tests 11/12/16 11/12/16 11/12/16 00:27 06:45 17:00 Troponin I < 0.02 D Urine Nitrite Negative Ur Leukocyte Esterase Negative Stool Occult Blood Negative CT chest w/o contrast 11/12/16: CT imaging completed demonstrating no signs of consolidation or pneumonia in the lungs with thin linear bands of platelike subsegmental atelectasis involving the posterior segment of the right lower lobe and posterior segment of the left lower lobe which are otherwise normally aerated with no evidence of pleural or pericardial effusions Gastrostomy tube in proper position Tracheostomy tube in proper position No pneumothorax or pneumomediastinum Normally positioned stomach with no signs of hiatal hernia there is distention of the mid and distal esophagus with thickened elkins and air -fluid level extending to the level of the midesophagus findings are consistent with likely reflux and aspiration precautions are recommended as the air-fluid level within the distended esophagus extends to the level of the jono. CXR 11/12/16 Since 10/08/2016, again noted is old rib trauma, weak inspiration, prominent mediastinum, tracheostomy tube and some central crowding. Follow-up recommended. 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 Patient has also been noted to have increased thick yellow tracheal secretions. He is nonverbal and history is obtained from snf records and emr. Sister is health care proxy. Last month he was treated by Dr Sims with clinda and zosyn. Also seen by Dr Claros ER course was notable for: (1)labs (2)cxr (3)albuterol, medrol 125 61 year old male with pmh of COPD, asthma, Chronic respiratory failure with trach (03/07/16), Down syndrome with severe MR present to the ED from [place] due to Hypoxia with O2 sat 87%, increased sputum production, lower grade fever. We diagnosed her with Hypoxia rt to mucus plug r/o PNA, COPD, Asthma, URI, Influenza. The CXR with possible increased opacity. Pt was started on antibiotics zosyn, ID was consulted and continue IV antibiotics, Blood culture was done was negative for 24 hours, sputum culture was ordered, INfluenza A/B was negative, urine for pneumonocccal and legionella antigens were negative, urine culture was negative. Pulmonary was consulted and they did believe pt was in copd or asthma exacerbation, they agreed that the hypoxia was due to mucus. Pt continue to receive his breathing treatment, steroid taper and with frequent suction, clinically improved. CT of the chest confirm that there was no pneumonia and the changes in on Xray were atelectasis, so antibiotics has been DC. Pt has h/o of anemia, his hbg was at baseline and stool ob was negative. Pt continue to receive Keppra Iv for his seizure disorder. Pt is DNR/DNI, family wants hospice care for patient with comfort care only. Date of Discharge: 11/13/16 Minutes to complete discharge: 35 <Yordan Andrews - Last Filed: 11/13/16 16:14> Physical Exam: Please discard this discharge summary as the patient was discharged later in the hospital course <Luis Enrique Gilmore - Last Filed: 12/11/16 17:18> Discharge Summary Reason For Visit: ASTHMA DOWN SYNDROME TRACHEITIS Current Active Problems Acute on chronic respiratory failure with hypoxia and hypercapnia (Acute) Anemia due to GI blood loss (Acute) Aspiration pneumonia (Acute) Asthma exacerbation (Acute) COPD exacerbation (Acute) Down syndrome (Acute) Hospital-acquired pneumonia (Acute) Pneumonia (Acute) Tracheitis (Acute) Tracheostomy dependence (Acute) - Home Medications Comprehensive Discharge Medication List: Ambulatory Orders Albuterol 2.5/Ipratropium 0.5 [Duoneb -] 1 neb IH QID 05/02/16 Levetiracetam [Keppra Oral Solution -] 500 mg GT BID 05/02/16 Glycopyrrolate [Robinul -] 1 mg GT TID 05/03/16 Magnesium Hydrox 2400MG/30Ml [Milk of Magnesia -] 30 ml GT DAILY PRN 05/03/16 Metoclopramide HCl 10 mg GT BID 05/03/16 Zinc Oxide 1 applic TP BID PRN 05/03/16 Montelukast Na [Singulair -] 10 mg GT HS 07/21/16 Budesonide [Pulmicort 0.25 mg Nebulizer -] 1 neb NEB BID 08/27/16 Clotrimazole [Lotrimin -] 1 applic TP BID 08/27/16 Ranitidine [Zantac -] 150 mg GT BID 08/27/16 Scopolamine Hydrobromide [Transderm-Scop -] 1 patch TD Q72H 08/27/16 Sucralfate Oral Suspension [Carafate Oral Suspension -] 1 gm GT BID 08/27/16 Bisacodyl Suppository [Dulcolax Suppository -] 10 mg RC DAILY PRN 11/12/16 Cholestyramine/Aspartame [Questran Light Packet -] 4 gm GT BID 11/12/16 Ferrous Sulfate [Feosol] 325 mg GT BID 11/12/16 Lactobacillus Acidophilus [Acidophilus] 1 each GT DAILY 11/12/16 Silver Sulfadiazine 1% Top Cr [Silvadene -] 1 applic TP BID 11/12/16 <Yordan Andrews - Last Filed: 11/13/16 16:14> <Luis Enrique Gilmore - Last Filed: 12/11/16 17:18> Condition: Guarded - Instructions Referrals: Landry Thomas Jr [Primary Care Provider] - Disposition: HOME This patient is new to me today: No Emergency Visit: Yes ED Registration Date: 11/12/16 Care time: The patient presented to the Emergency Department on the above date and was hospitalized for further evaluation of their emergent condition. Critical Care patient: No - Discharge Referral Referred to [facility] No <Yordan Andrews - Last Filed: 11/13/16 16:14>
[2016-11-13] MEDS: levETIRAcetam 500 MG/5 ML INJECTION VIAL IVPB SCH ×2 (09:33→22:13)
--- NOTE | 2016-11-13 09:52 | PN ---
Progress Note (short form) - Note Progress Note: PULMONARY Pt nonverbal, no fevers recorded. CT chest done showing more congestive changes , possible RLL infiltrate but appears more atelectatic. Official report pending. Last Vital Signs Temp Pulse Resp BP Pulse Ox 97.4 F L 99 H 20 129/66 96 11/13/16 07:45 11/13/16 07:45 11/13/16 07:45 11/13/16 07:45 11/12/16 21:00 Gen: trach collar, breathing nonlabored Heart: RRR Lung: scattered rhonchi Abd: soft, nontender Ext: no edema CBC, BMP 11/12/16 07:45 11/12/16 07:45 Active Medications Albuterol/Ipratropium (Duoneb -) 1 amp NEB QIDR [facility] Last Admin: 11/13/16 06:28 Dose: 1 amp Albuterol/Ipratropium (Duoneb -) 1 amp NEB Q4H PRN PRN Reason: SHORTNESS OF BREATH Bisacodyl (Dulcolax Suppository -) 10 mg RC DAILY PRN PRN Reason: CONSTIPATION Last Admin: 11/12/16 13:01 Dose: 10 mg Budesonide (Pulmicort 0.25 Mg Nebulizer -) 1 amp NEB BID [facility] Last Admin: 11/12/16 22:27 Dose: Not Given Cholestyramine Resin (Questran Light Packet -) 4 gm GT BID [facility] Last Admin: 11/12/16 22:40 Dose: 4 gm Clotrimazole (Lotrimin 1% Solution -) 1 applic TP BID [facility] Last Admin: 11/12/16 21:42 Dose: 1 applic Glycopyrrolate (Robinul -) 1 mg GT TID [facility] Last Admin: 11/13/16 06:23 Dose: 1 mg Pantoprazole Sodium 80 mg/ (Sodium Chloride) 100 mls @ 10 mls/hr IVPB Q10H ERIN PRN Reason: 8 MG/HR Last Admin: 11/12/16 21:39 Dose: 10 mls/hr Piperacillin Sod/Tazobactam Sod (Zosyn 3.375gm Ivpb (Pre-Docked)) 50 mls @ 100 mls/hr IVPB Q8H-IV [facility] Last Admin: 11/13/16 01:47 Dose: 100 mls/hr Levetiracetam (Keppra Injection -) 500 mg IVPB BID [facility] Last Admin: 11/13/16 09:33 Dose: 500 mg Magnesium Hydroxide (Milk Of Magnesia -) 30 ml GT DAILY PRN PRN Reason: CONSTIPATION Methylprednisolone Sodium Succinate (Solu-Medrol -) 40 mg IVPB DAILY [facility] Montelukast Sodium (Singulair -) 10 mg GT HS [facility] Last Admin: 11/12/16 21:38 Dose: 10 mg Ranitidine HCl (Zantac Oral Solution -) 150 mg GT BID [facility] Last Admin: 11/12/16 21:38 Dose: 150 mg Scopolamine HBr (Transderm-Scop -) 1 patch TD Q72H [facility] Last Admin: 11/12/16 10:02 Dose: 1 patch Silver Sulfadiazine (Silvadene -) 1 applic TP BID [facility] Last Admin: 11/12/16 21:41 Dose: 1 applic Sucralfate (Carafate Oral Suspension -) 1 gm GT BID [facility] Last Admin: 11/12/16 21:38 Dose: 1 gm A/P Acute on Chronic Hypoxic Respiratory Failure Atelectasis Acute Bronchitis Down Syndrome Mental Retardation Seizure Disorder COPD - agree that hypoxia likely due to mucous plugging - recommend de-escalation of antibiotics to treat bronchitis - O2 to keep SpO2 >90% - taper off prednisone - aspiration precautions - enteral feeds - DVT prophylaxis
[2016-11-13] MEDS: BUDESONIDE 0.25 MG/2ML INH SUSP VIAL NEB SCH ×2 (10:10→22:22)
[2016-11-13] MEDS: PANTOPRAZOLE SODIUM 80 MG in SODIUM CHLORIDE 100 ML IVPB SCH (10:15)
[2016-11-13] MEDS: MAGNESIUM HYDROX 2400MG/30ML ORAL SUSPENSION 30 ML CUP GT PRN (11:30)
[2016-11-13] MEDS: SUCRALFATE 1 GM/10 ML UNIT DOSE CUPS GT SCH ×2 (11:30→22:12)
[2016-11-13] MEDS: RANITIDINE HCL 150 MG/10 ML UNIT-DOSE CUP GT SCH ×2 (11:30→22:12)
[2016-11-13] MEDS: methylPREDNISolone NA SUCC 40 MG/1 ML VIAL IVPB SCH (11:30)
[2016-11-13] MEDS: CHOLESTYRAMINE/ASPARTAME 4 GM PACKET GT SCH ×2 (11:31→22:13)
[2016-11-13] MEDS: CLOTRIMAZOLE 1%TOPICAL SOLUTION 30 ML BOTTLE TP SCH ×2 (11:33→22:13)
[2016-11-13] MEDS: SILVER SULFADIAZINE 1% TOP CREAM 400 GM JAR TP SCH ×2 (11:33→22:14)
--- NOTE | 2016-11-13 13:04 | PN ---
Progress Note, Physician History of Present Illness: has been afebrile looks more calmer and better - Current Medication List Current Medications: Active Medications Albuterol/Ipratropium (Duoneb -) 1 amp NEB QIDR [facility] Last Admin: 11/13/16 11:18 Dose: 1 amp Albuterol/Ipratropium (Duoneb -) 1 amp NEB Q4H PRN PRN Reason: SHORTNESS OF BREATH Bisacodyl (Dulcolax Suppository -) 10 mg RC DAILY PRN PRN Reason: CONSTIPATION Last Admin: 11/12/16 13:01 Dose: 10 mg Budesonide (Pulmicort 0.25 Mg Nebulizer -) 1 amp NEB BID [facility] Last Admin: 11/13/16 10:10 Dose: 1 amp Cholestyramine Resin (Questran Light Packet -) 4 gm GT BID [facility] Last Admin: 11/13/16 11:31 Dose: 4 gm Clotrimazole (Lotrimin 1% Solution -) 1 applic TP BID [facility] Last Admin: 11/13/16 11:33 Dose: 1 applic Glycopyrrolate (Robinul -) 1 mg GT TID [facility] Last Admin: 11/13/16 06:23 Dose: 1 mg Piperacillin Sod/Tazobactam Sod (Zosyn 3.375gm Ivpb (Pre-Docked)) 50 mls @ 100 mls/hr IVPB Q8H-IV [facility] Last Admin: 11/13/16 11:30 Dose: 100 mls/hr Pantoprazole Sodium (Protonix 40mg Ivpb (Pre-Docked)) 100 mls @ 200 mls/hr IVPB DAILY [facility] Levetiracetam (Keppra Injection -) 500 mg IVPB BID [facility] Last Admin: 11/13/16 09:33 Dose: 500 mg Magnesium Hydroxide (Milk Of Magnesia -) 30 ml GT DAILY PRN PRN Reason: CONSTIPATION Last Admin: 11/13/16 11:30 Dose: 30 ml Methylprednisolone Sodium Succinate (Solu-Medrol -) 40 mg IVPB DAILY [facility] Last Admin: 11/13/16 11:30 Dose: 40 mg Montelukast Sodium (Singulair -) 10 mg GT HS [facility] Last Admin: 11/12/16 21:38 Dose: 10 mg Ranitidine HCl (Zantac Oral Solution -) 150 mg GT BID [facility] Last Admin: 11/13/16 11:30 Dose: 150 mg Scopolamine HBr (Transderm-Scop -) 1 patch TD Q72H [facility] Last Admin: 11/12/16 10:02 Dose: 1 patch Silver Sulfadiazine (Silvadene -) 1 applic TP BID [facility] Last Admin: 11/13/16 11:33 Dose: 1 applic Sucralfate (Carafate Oral Suspension -) 1 gm GT BID [facility] Last Admin: 11/13/16 11:30 Dose: 1 gm - Objective Vital Signs: Vital Signs Temperature 97.4 F L 11/13/16 07:45 Pulse Rate 71 11/13/16 11:50 Respiratory Rate 20 11/13/16 07:45 Blood Pressure 129/66 11/13/16 07:45 O2 Sat by Pulse Oximetry (%) 97 11/13/16 11:50 Constitutional: Yes: No Distress, Calm Neck: Yes: Other (trach in place) Cardiovascular: Yes: Regular Rate and Rhythm Respiratory: Yes: Regular, Poor Air Entry, Other (secretions white and thick) Gastrointestinal: Yes: Normal Bowel Sounds, Soft, Other (peg tube site ok) Musculoskeletal: Yes: Other Extremities: Yes: Other Neurological: Yes: Other (MR) Labs: CBC, BMP 11/12/16 07:45 11/12/16 07:45 Assessment/Plan patient has to be treated as hcap but i am going to hold of on starting anything except zosyn as this could be asp pna also i am going to wait for the influnza to come back his secretions ar mostly white and thin also awaiting for ct scan resul pna r/o influenza copd anemia MR fever plan continue zosyn' await for identification of the bacteria will watch fevers continue suctioning
--- NOTE | 2016-11-13 15:29 | PN ---
Teaching Attending Note Name of Resident: Yordan Andrews ATTENDING PHYSICIAN STATEMENT I saw and evaluated the patient. I reviewed the resident's note and discussed the case with the resident. I agree with the resident's findings and plan as documented. SUBJECTIVE: Unable to obtain hx . 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 1- Hypoxia. . likely due to thick secretions and mucous plugging . CT scan shows no infiltrate . - d/w Dr. Sims, can deescalate to Augmentin tomorrow for 5 more days - Rapid flu neg . RVP pending - Dc IVF - Taper steroids 2- H/o seizure : cont keppra 3- Possible Upper GI bleed . No further bleed seen . change PPI gtt to IV PPI Dispo: [facility] [place] placement pending . possibly will get approval tomorrow
--- NOTE | 2016-11-13 16:12 | PN ---
Physical Exam: SUBJECTIVE: Patient seen and examined no major event overnight Pt was moved from 4th to 8th floor Secretion clearing up, changing from yellow to white no fever or chills no vomiting OBJECTIVE: Vital Signs Period Temp Pulse Resp BP Sys/Rowley Pulse Ox Last 24 Hr 97.4 F-98.6 F 71-100 20-22 108-133/60-79 96-97 GENERAL: The patient is awake, alert, in no acute distress. HEAD: Normal with no signs of trauma. EYES: PERRL, extraocular movements intact, sclera anicteric, conjunctiva clear. No ptosis. ENT: Ears normal, nares patent, oropharynx clear without exudates, moist mucous membranes. NECK: Trachea midline, full range of motion, supple. Trach collar in place with moderate copious yellow sputum LUNGS: upper resp tract congestion, diminished lung sounds b/l, no wheezes, no crackles, no accessory muscle use. HEART: Regular rate and rhythm, S1, S2 without murmur, rub or gallop. ABDOMEN: Soft, nontender, nondistended, normoactive bowel sounds, no guarding, no rebound, no hepatosplenomegaly, no masses. EXTREMITIES: 2+ pulses, warm, well-perfused, no edema. NEUROLOGICAL: Normal speech, gait not observed. PSYCH: Normal mood, normal affect. SKIN: Warm, dry, normal turgor, no rashes or lesions noted. Redness of b/l foot Laboratory Results - last 24 hr 11/12/16 17:00 Urine Color Lt. yellow Urine Appearance Clear Urine pH 6.0 Ur Specific [place] 1.010 Urine Protein Negative Urine Glucose (UA) Negative Urine Ketones Negative Urine Blood Negative Urine Nitrite Negative Urine Bilirubin Negative Urine Urobilinogen 0.2 e.u/dl Ur Leukocyte Esterase Negative Active Medications Generic Name Dose Route Start Last Admin Trade Name Freq PRN Reason Stop Dose Admin Albuterol/Ipratropium 1 amp 11/12/16 06:00 11/13/16 11:18 Duoneb - NEB 1 amp QIDR [facility] Administration Albuterol/Ipratropium 1 amp 11/12/16 10:25 Duoneb - NEB Q4H PRN SHORTNESS OF BREATH Bisacodyl 10 mg 11/12/16 05:19 11/12/16 13:01 Dulcolax Suppository - RC 10 mg DAILY PRN Administration CONSTIPATION Budesonide 1 amp 11/12/16 10:00 11/13/16 10:10 Pulmicort 0.25 Mg Nebulizer - NEB 1 amp BID [facility] Administration Cholestyramine Resin 4 gm 11/12/16 10:00 11/13/16 11:31 Questran Light Packet - GT 4 gm BID ER[facility] Administration Clotrimazole 1 applic 11/12/16 10:00 11/13/16 11:33 Lotrimin 1% Solution - TP 1 applic BID [facility] Administration Glycopyrrolate 1 mg 11/12/16 06:00 11/13/16 14:00 Robinul - GT 1 mg TID [facility] Administration Piperacillin Sod/Tazobactam Sod 50 mls @ 100 mls/hr 11/12/16 18:00 11/13/16 11: 30 Zosyn 3.375gm Ivpb (Pre-Docked) IVPB 100 mls/hr Q8H-IV [facility] Administration Pantoprazole Sodium 100 mls @ 200 mls/hr 11/14/16 10:00 Protonix 40mg Ivpb (Pre-Docked) IVPB DAILY [facility] Levetiracetam 500 mg 11/12/16 10:00 11/13/16 09:33 Keppra Injection - IVPB 500 mg BID [facility] Administration Magnesium Hydroxide 30 ml 11/12/16 05:19 11/13/16 11:30 Milk Of Magnesia - GT 30 ml DAILY PRN Administration CONSTIPATION Methylprednisolone Sodium Succinate 40 mg 11/13/16 10:00 11/13/16 11:30 Solu-Medrol - IVPB 40 mg DAILY [facility] Administration Montelukast Sodium 10 mg 11/12/16 22:00 11/12/16 21:38 Singulair - GT 10 mg HS [facility] Administration Ranitidine HCl 150 mg 11/12/16 10:00 11/13/16 11:30 Zantac Oral Solution - GT 150 mg BID [facility] Administration Scopolamine HBr 1 patch 11/12/16 10:00 11/12/16 10:02 Transderm-Scop - TD 1 patch Q72H [facility] Administration Silver Sulfadiazine 1 applic 11/12/16 10:00 11/13/16 11:33 Silvadene - TP 1 applic BID [facility] Administration Sucralfate 1 gm 11/12/16 10:00 11/13/16 11:30 Carafate Oral Suspension - GT 1 gm BID [facility] Administration CBC, BMP 11/12/16 07:45 11/12/16 07:45 CXR 11/12/16 Since 10/08/2016, again noted is old rib trauma, weak inspiration, prominent mediastinum, tracheostomy tube and some central crowding. Follow-up recommended. ASSESSMENT/PLAN: 61 year old male with pmh of COPD, asthma, Chronic respiratory failure with trach (03/07/16), Down syndrome with severe MR present to the ED from [place] due to Hypoxia with O2 sat 87%, increased sputum production, lower grade fever. Hypoxia rt to mucus plug r/o PNA, COPD, Asthma, URI, Influenza CXR with possible increased opacity CT chest showed B/l; Atelectasis no infiltrates Influenza A/B negative blood culture negative, continue to follow. urine culture negative ID consulted Dr Sims saw the pt Pulmonology consulted Consider holding antibiotics urine for pneumonia negative Suction Q2h and PRN Keep O2 sat above 90% continue bronchodilators COPD Exacerbation Duoneb Sinugulair solumedrol to 40mg IV daily pulmonary on case Anemia Hbg 9.9 baseline for the pt It was reported that there was coffee ground material from G-tube but no coffee ground emesis was found by day nurse Stool OB was negative trend hgb Seizure disorder On Keppra FEn fluid: No IV fluid Electrolytes: No abnormalities Nutrition: Jevity DVT prophylaxis : SCD Disposition: Pt is DNR/DNI. No aggressive care desired by sister. No antibiotics unless judged absolutely necessary. Family desire comfort care only. [facility] Visit type - Emergency Visit Emergency Visit: Yes ED Registration Date: 11/12/16 Care time: The patient presented to the Emergency Department on the above date and was hospitalized for further evaluation of their emergent condition. - New Patient This patient is new to me today: No - Critical Care Critical Care patient: No - Discharge Referral Referred to [facility] No
[2016-11-13] MEDS: MONTELUKAST NA 10 MG TABLET GT SCH (22:12)
[2016-11-14] MEDS: PIPERACILLIN/TAZOB 3.375 GM 50 ML IVPB SCH ×3 (02:11→17:06)
[2016-11-14] MEDS ORDERED: PT OWN MED DRAWER 7, Y5N ONE ×4 (05:42→22:19)
[2016-11-14] MEDS: ALBUTEROL SO4 2.5/IPRATROPIUM 0.5 INH SOL 3 ML VIAL.NEB. NEB SCH ×3 (06:02→18:10)
[2016-11-14] MEDS: GLYCOPYRROLATE 1 MG TABLET GT SCH ×3 (06:05→22:26)
[2016-11-14] MEDS ORDERED: PANTOPRAZOLE SODIUM 100 ML IVPB SCH (10:00)
[2016-11-14] MEDS: SUCRALFATE 1 GM/10 ML UNIT DOSE CUPS GT SCH ×2 (10:17→22:25)
[2016-11-14] MEDS: methylPREDNISolone NA SUCC 40 MG/1 ML VIAL IVPB SCH (10:17)
[2016-11-14] MEDS: RANITIDINE HCL 150 MG/10 ML UNIT-DOSE CUP GT SCH ×2 (10:17→22:26)
[2016-11-14] MEDS: SILVER SULFADIAZINE 1% TOP CREAM 400 GM JAR TP SCH ×2 (10:17→22:26)
[2016-11-14] MEDS: CHOLESTYRAMINE/ASPARTAME 4 GM PACKET GT SCH ×2 (10:17→22:26)
[2016-11-14] MEDS: CLOTRIMAZOLE 1%TOPICAL SOLUTION 30 ML BOTTLE TP SCH ×2 (10:18→22:26)
[2016-11-14] MEDS: BUDESONIDE 0.25 MG/2ML INH SUSP VIAL NEB SCH (10:20)
[2016-11-14] MEDS: levETIRAcetam 500 MG/5 ML INJECTION VIAL IVPB SCH (10:29)
--- NOTE | 2016-11-14 13:06 | PN ---
Progress Note, Physician History of Present Illness: has been afebrile looks more calmer and better still having lot of secretions thin white in nature - Current Medication List Current Medications: Active Medications Albuterol/Ipratropium (Duoneb -) 1 amp NEB QIDR [facility] Last Admin: 11/14/16 11:35 Dose: 1 amp Albuterol/Ipratropium (Duoneb -) 1 amp NEB Q4H PRN PRN Reason: SHORTNESS OF BREATH Bisacodyl (Dulcolax Suppository -) 10 mg RC DAILY PRN PRN Reason: CONSTIPATION Last Admin: 11/12/16 13:01 Dose: 10 mg Budesonide (Pulmicort 0.25 Mg Nebulizer -) 1 amp NEB BID [facility] Last Admin: 11/14/16 10:20 Dose: 1 amp Cholestyramine Resin (Questran Light Packet -) 4 gm GT BID [facility] Last Admin: 11/14/16 10:17 Dose: 4 gm Clotrimazole (Lotrimin 1% Solution -) 1 applic TP BID [facility] Last Admin: 11/14/16 10:18 Dose: 1 applic Glycopyrrolate (Robinul -) 1 mg GT TID [facility] Last Admin: 11/14/16 06:05 Dose: 1 mg Piperacillin Sod/Tazobactam Sod (Zosyn 3.375gm Ivpb (Pre-Docked)) 50 mls @ 100 mls/hr IVPB Q8H-IV [facility] Last Admin: 11/14/16 10:30 Dose: 100 mls/hr Pantoprazole Sodium (Protonix 40mg Ivpb (Pre-Docked)) 100 mls @ 200 mls/hr IVPB DAILY [facility] Last Admin: 11/14/16 11:22 Dose: 200 mls/hr Levetiracetam (Keppra Injection -) 500 mg IVPB BID [facility] Last Admin: 11/14/16 10:29 Dose: 500 mg Magnesium Hydroxide (Milk Of Magnesia -) 30 ml GT DAILY PRN PRN Reason: CONSTIPATION Last Admin: 11/13/16 11:30 Dose: 30 ml Methylprednisolone Sodium Succinate (Solu-Medrol -) 40 mg IVPB DAILY [facility] Last Admin: 11/14/16 10:17 Dose: 40 mg Montelukast Sodium (Singulair -) 10 mg GT HS [facility] Last Admin: 11/13/16 22:12 Dose: 10 mg Ranitidine HCl (Zantac Oral Solution -) 150 mg GT BID [facility] Last Admin: 11/14/16 10:17 Dose: 150 mg Scopolamine HBr (Transderm-Scop -) 1 patch TD Q72H [facility] Last Admin: 11/12/16 10:02 Dose: 1 patch Silver Sulfadiazine (Silvadene -) 1 applic TP BID [facility] Last Admin: 11/14/16 10:17 Dose: 1 applic Sucralfate (Carafate Oral Suspension -) 1 gm GT BID [facility] Last Admin: 11/14/16 10:17 Dose: 1 gm - Objective Vital Signs: Vital Signs Temperature 97.3 F L 11/14/16 07:50 Pulse Rate 111 H 11/14/16 10:20 Respiratory Rate 20 11/14/16 07:50 Blood Pressure 90/54 11/14/16 07:50 O2 Sat by Pulse Oximetry (%) 93 L 11/14/16 10:20 Constitutional: Yes: No Distress, Calm Neck: Yes: Other (trach) Cardiovascular: Yes: Regular Rate and Rhythm Respiratory: Yes: Regular, Poor Air Entry Gastrointestinal: Yes: Normal Bowel Sounds, Soft Musculoskeletal: Yes: WNL Extremities: Yes: WNL Neurological: Yes: Alert, Other Labs: CBC, BMP 11/12/16 07:45 11/12/16 07:45 Assessment/Plan patient has to be treated as hcap but i am going to hold of on starting anything except zosyn as this could be asp pna also i am going to wait for the influnza to come back his secretions ar mostly white and thin also awaiting for ct scan resul pna r/o influenza copd anemia MR fever plan continue zosyn' await for identification of the bacteria continue suctioning
--- NOTE | 2016-11-14 13:54 | DS ---
Physical Examination Vital Signs: Vital Signs Temperature 97.5 F L 11/14/16 11:00 Pulse Rate 84 11/14/16 11:00 Respiratory Rate 22 11/14/16 11:00 Blood Pressure 112/69 11/14/16 11:00 O2 Sat by Pulse Oximetry (%) 93 L 11/14/16 10:20 Findings/Remarks: n o events over night , no fever or chills. unable toobtain hx Constitutional: Yes: No Distress, Calm, Other (non verbal) Eyes: Yes: Conjunctiva Clear HENT: Yes: Atraumatic Cardiovascular: Yes: Regular Rate and Rhythm. No: Murmur, Rub Respiratory: Yes: Regular, Rhonchi (b/l lung filed . imporved from before), Wheezes (minimal) Gastrointestinal: Yes: Normal Bowel Sounds, Soft, Other (PEG tube in , no surrounding erythema) Extremities: Yes: Other (non pitting edema on feet) Neurological: Yes: Alert. No: Oriented Labs: CBC, BMP 11/12/16 07:45 11/12/16 07:45 Discharge Summary Reason For Visit: ASTHMA DOWN SYNDROME TRACHEITIS Current Active Problems Acute on chronic respiratory failure with hypoxia and hypercapnia (Acute) Anemia due to GI blood loss (Acute) Tracheitis (Acute) Airway clearance impairment (Chronic) Down syndrome (Chronic) Tracheostomy dependence (Chronic) Hospital Course: DC Diagnoses : 1- Hypoxia. 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 initially on xcxray , there was a RLL opacity . He was started on Abx to cover HCAP /Asp PNA , then CT chest was obtained to clarify ( atelectasis vs infiltrate ) . CT showed no infiltrate . HIs hypoxia was thought to be due to mucus plugging and he needed frequent suctioning. He was continued on Abx though to cover Bronchitis . zosyn was used. sputum cx showed 3 organisms including 2 Non lactose fermenting bugs . the pt was dc on cipro and augmentin for 7 more days . if warranted final cx results are to be followed for further ABx adjustment the patient was seen by palliative care , and it turned out he was made hospice at previous dc to [place] and he was not supposed to be readmitted. [facility] was contacted for Hospice placement . Sister , was contacted and was agreeable to hospice, ALso she agreed to Abx if felt needed by MD. On admission, he was found with coffee ground substance around PEG and was started on PPI gtt then IV PPI , . due to the option of hospice and no further aggressive mgt , he was not seen by GI. His hb was stable and he did not show further signs of GI bleed Dispo : Hospice at [place] Condition: Guarded - Instructions Diet, Activity, Other Instructions: please give cipro and Augmentin for 7 days . if Further treatment is needed , cultures of sputum are to be followed ( final results ) suction the tracheal secretions frequently as needed ( at least 5 times a day ) Tube Feeding: Jevity 1.5 @ 45 cc /hr ( goal ) . with 10 cc/hr free water Referrals: Landry Thomas Jr [Primary Care Provider] - Disposition: [facility]ACILITY - Home Medications Comprehensive Discharge Medication List: Ambulatory Orders Albuterol 2.5/Ipratropium 0.5 [Duoneb -] 1 neb IH QID 05/02/16 Levetiracetam [Keppra Oral Solution -] 500 mg GT BID 05/02/16 Glycopyrrolate [Robinul -] 1 mg GT TID 05/03/16 Magnesium Hydrox 2400MG/30Ml [Milk of Magnesia -] 30 ml GT DAILY PRN 05/03/16 Metoclopramide HCl 10 mg GT BID 05/03/16 Zinc Oxide 1 applic TP BID PRN 05/03/16 Montelukast Na [Singulair -] 10 mg GT HS 07/21/16 Budesonide [Pulmicort 0.25 mg Nebulizer -] 1 neb NEB BID 08/27/16 Clotrimazole [Lotrimin -] 1 applic TP BID 08/27/16 Ranitidine [Zantac -] 150 mg GT BID 08/27/16 Scopolamine Hydrobromide [Transderm-Scop -] 1 patch TD Q72H 08/27/16 Sucralfate Oral Suspension [Carafate Oral Suspension -] 1 gm GT BID 08/27/16 Bisacodyl Suppository [Dulcolax Suppository -] 10 mg RC DAILY PRN 11/12/16 Cholestyramine/Aspartame [Questran Light Packet -] 4 gm GT BID 11/12/16 Ferrous Sulfate [Feosol] 325 mg GT BID 11/12/16 Lactobacillus Acidophilus [Acidophilus] 1 each GT DAILY 11/12/16 Silver Sulfadiazine 1% Top Cr [Silvadene -] 1 applic TP BID 11/12/16 Amoxicillin/Potassium Clav [Augmentin 875-125 Tablet] 1 each GT Q12H #14 tablet 11/14/16 Ciprofloxacin HCl [Cipro] 500 mg GT Q12H #14 tablet 11/14/16 Prednisone 10 mg PO ASDIR #1 tablet 11/14/16 This patient is new to me today: No Emergency Visit: Yes ED Registration Date: 11/12/16 Care time: The patient presented to the Emergency Department on the above date and was hospitalized for further evaluation of their emergent condition. Critical Care patient: No - Discharge Referral Referred to [facility] No
[2016-11-14] MEDS: MONTELUKAST NA 10 MG TABLET GT SCH (22:26)
[2016-11-14] MEDS: levETIRAcetam 500 MG/5 ML ORAL SOLUTION (UNIT-DOSE CUPS) GT SCH (22:26)
[2016-11-15] MEDS: BUDESONIDE 0.25 MG/2ML INH SUSP VIAL NEB SCH ×2 (00:14→10:15)
[2016-11-15] MEDS: ALBUTEROL SO4 2.5/IPRATROPIUM 0.5 INH SOL 3 ML VIAL.NEB. NEB SCH ×4 (00:15→18:30)
[2016-11-15] MEDS: PIPERACILLIN/TAZOB 3.375 GM 50 ML IVPB SCH ×2 (01:43→10:30)
[2016-11-15] MEDS: GLYCOPYRROLATE 1 MG TABLET GT SCH ×3 (06:00→21:16)
[2016-11-15] MEDS ORDERED: PT OWN MED DRAWER 7, Y5N ONE ×2 (09:59→20:25)
[2016-11-15] MEDS ORDERED: methylPREDNISolone NA SUCC 40 MG/1 ML VIAL IVPB SCH (10:00)
[2016-11-15] MEDS: RANITIDINE HCL 150 MG/10 ML UNIT-DOSE CUP GT SCH ×2 (10:28→21:04)
[2016-11-15] MEDS: levETIRAcetam 500 MG/5 ML ORAL SOLUTION (UNIT-DOSE CUPS) GT SCH ×2 (10:28→21:04)
[2016-11-15] MEDS: CHOLESTYRAMINE/ASPARTAME 4 GM PACKET GT SCH ×2 (10:28→21:04)
[2016-11-15] MEDS: SUCRALFATE 1 GM/10 ML UNIT DOSE CUPS GT SCH ×2 (10:28→21:04)
[2016-11-15] MEDS: SCOPOLAMINE HYDROBROMIDE 1 PATCH PATCH.TD72 TD SCH (10:29)
[2016-11-15] MEDS: SILVER SULFADIAZINE 1% TOP CREAM 400 GM JAR TP SCH ×2 (10:33→22:30)
[2016-11-15] MEDS: CLOTRIMAZOLE 1%TOPICAL SOLUTION 30 ML BOTTLE TP SCH ×2 (10:34→21:16)
--- NOTE | 2016-11-15 12:22 | PN ---
Physical Exam: SUBJECTIVE: Patient seen and examined. The pt is nonverbal. Appears to be calm. White secretions still present, no overnight events. OBJECTIVE: Vital Signs Period Temp Pulse Resp BP Sys/Rowley Pulse Ox Last 24 Hr 97.5 F-98.9 F 66-98 18-22 103-129/60-78 97-97 GENERAL: The patient is awake, alert, and fully oriented, in no acute distress. HEAD: Normal with no signs of trauma. EYES: small, PERRL, sclera anicteric, conjunctiva clear. No ptosis. ENT: Ears normal, nares patent, oropharynx clear without exudates, moist mucous membranes. NECK: Trachea midline, full range of motion, supple, trachea tube inserted. LUNGS: Breath sounds equal, rhonchi bilaterally, coarse breath sounds, no wheezes, no crackles, HEART: Distant heart sounds, Regular rate and rhythm, S1, S2 without murmur, rub or gallop. ABDOMEN: Soft, nontender, nondistended, normoactive bowel sounds, no guarding, no rebound, no hepatosplenomegaly, no masses., PEG tube in, no skin changes. EXTREMITIES: 2+ pulses, warm, well-perfused, no edema. NEUROLOGICAL: Cranial nerves II through XII grossly intact. Gait not observed. PSYCH: Normal mood, normal affect. SKIN: Warm, dry, normal turgor, no rashes or lesions noted Active Medications Generic Name Dose Route Start Last Admin Trade Name Freq PRN Reason Stop Dose Admin Albuterol/Ipratropium 1 amp 11/12/16 06:00 11/15/16 07:27 Duoneb - NEB 1 amp QIDR ERIN Administration Albuterol/Ipratropium 1 amp 11/12/16 10:25 Duoneb - NEB Q4H PRN SHORTNESS OF BREATH Bisacodyl 10 mg 11/12/16 05:19 11/12/16 13:01 Dulcolax Suppository - RC 10 mg DAILY PRN Administration CONSTIPATION Budesonide 1 amp 11/12/16 10:00 11/15/16 00:14 Pulmicort 0.25 Mg Nebulizer - NEB 1 amp BID ERIN Administration Cholestyramine Resin 4 gm 11/12/16 10:00 11/15/16 10:28 Questran Light Packet - GT 4 gm BID ERIN Administration Clotrimazole 1 applic 11/12/16 10:00 11/15/16 10:34 Lotrimin 1% Solution - TP 1 applic BID ERIN Administration Glycopyrrolate 1 mg 11/12/16 06:00 11/15/16 06:00 Robinul - GT 1 mg TID ERIN Administration Piperacillin Sod/Tazobactam Sod 50 mls @ 100 mls/hr 11/12/16 18:00 11/15/16 10: 30 Zosyn 3.375gm Ivpb (Pre-Docked) IVPB 100 mls/hr Q8H-IV [facility] Administration Levetiracetam 500 mg 11/14/16 22:00 11/15/16 10:28 Keppra Oral Solution - GT 500 mg BID ERIN Administration Magnesium Hydroxide 30 ml 11/12/16 05:19 11/13/16 11:30 Milk Of Magnesia - GT 30 ml DAILY PRN Administration CONSTIPATION Methylprednisolone Sodium Succinate 30 mg 11/15/16 10:00 11/15/16 10:27 Solu-Medrol - IVPB 30 mg DAILY ERIN Administration Montelukast Sodium 10 mg 11/12/16 22:00 11/14/16 22:26 Singulair - GT 10 mg HS ERIN Administration Ranitidine HCl 150 mg 11/12/16 10:00 11/15/16 10:28 Zantac Oral Solution - GT 150 mg BID ERIN Administration Scopolamine HBr 1 patch 11/12/16 10:00 11/15/16 10:29 Transderm-Scop - TD 1 patch Q72H ERIN Administration Silver Sulfadiazine 1 applic 11/12/16 10:00 11/15/16 10:33 Silvadene - TP 1 applic BID ERIN Administration Sucralfate 1 gm 11/12/16 10:00 11/15/16 10:28 Carafate Oral Suspension - GT 1 gm BID ERIN Administration ASSESSMENT/PLAN: CXR 11/12/16 Since 10/08/2016, again noted is old rib trauma, weak inspiration, prominent mediastinum, tracheostomy tube and some central crowding. Follow-up recommended. CT scan: no infiltrates Sputum culture: E.Coli ESBL, Providencia Stuarti, Morganella Morgani ASSESSMENT/PLAN: 61 year old male with pmh of COPD, asthma, Chronic respiratory failure with trach (03/07/16), Down syndrome with severe MR present to the ED from [place] due to Hypoxia with O2 sat 87%, increased sputum production, lower grade fever. Hypoxia rt to mucus plug r/o PNA, COPD, Asthma, URI, Influenza -hypoxia probably due to mucus production -blood cultures, urine cx negative, Influenza neg. -the pt is on Zosyn, will continue for now, -will switch to Augumentin and Ciprofloxacin when pt ready to do to [place] -suction Q2H and PRN -keep 02 above 90 -continue bronchodilators COPD Exacerbation -continue Duoneb, Sinugulair, solumedrol to 40mg IV daily Anemia: -Hbg 9.9 baseline for the pt -It was reported that there was coffee ground material from G-tube -but no coffee ground emesis was found by day nurse -Stool OB was negative -monitor Seizure disorder -continue Keppra F/E/N No/No/Jevity DVT prophylaxis : SCDs Disposition: Pt is DNR/DNI. Awaiting DC to palliative with [facility] Problem List - Problems (1) Acute on chronic respiratory failure with hypoxia and hypercapnia Code(s): J96.21 - ACUTE AND CHRONIC RESPIRATORY FAILURE WITH HYPOXIA J96.22 - ACUTE AND CHRONIC RESPIRATORY FAILURE WITH HYPERCAPNIA (2) Anemia due to GI blood loss Code(s): D50.0 - IRON DEFICIENCY ANEMIA SECONDARY TO BLOOD LOSS (CHRONIC) (3) Down syndrome Code(s): Q90.9 - DOWN SYNDROME, UNSPECIFIED (4) Tracheostomy dependence Code(s): Z93.0 - TRACHEOSTOMY STATUS Visit type - Emergency Visit Emergency Visit: Yes ED Registration Date: 11/12/16 Care time: The patient presented to the Emergency Department on the above date and was hospitalized for further evaluation of their emergent condition. - New Patient This patient is new to me today: No - Critical Care Critical Care patient: No
[2016-11-15] MEDS ORDERED: ERTAPENEM SODIUM 1 GM in SODIUM CHLORIDE 50 ML IVPB ONE (12:29)
--- NOTE | 2016-11-15 12:35 | PN ---
Teaching Attending Note Name of Resident: Jo Hagan ATTENDING PHYSICIAN STATEMENT I saw and evaluated the patient. I reviewed the resident's note and discussed the case with the resident. I agree with the resident's findings and plan as documented. 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 1- Hypoxia. . likely due to thick secretions and mucous plugging . CT scan shows no infiltrate . - continue treatment for bronchitis - sputum cx shows ESBL E coli and other organisms . will give ertapenem pending d/w Dr Lucas - Rapid flu neg . RVP pending - Taper steroids and switch to liquid prednisone through PEG 2- H/o seizure : cont keppra 3- Possible Upper GI bleed . No further bleed seen . cont PPI pending hospice placement
[2016-11-15] MEDS ORDERED: ERTAPENEM SODIUM 1 GM in SODIUM CHLORIDE 50 ML IVPB SCH (12:40)
--- NOTE | 2016-11-15 14:33 | PN ---
Progress Note, Physician History of Present Illness: patient stable still with lot of secretions - Current Medication List Current Medications: Active Medications Albuterol/Ipratropium (Duoneb -) 1 amp NEB QIDR [facility] Last Admin: 11/15/16 12:00 Dose: 1 amp Albuterol/Ipratropium (Duoneb -) 1 amp NEB Q4H PRN PRN Reason: SHORTNESS OF BREATH Bisacodyl (Dulcolax Suppository -) 10 mg RC DAILY PRN PRN Reason: CONSTIPATION Last Admin: 11/12/16 13:01 Dose: 10 mg Budesonide (Pulmicort 0.25 Mg Nebulizer -) 1 amp NEB BID [facility] Last Admin: 11/15/16 10:15 Dose: 1 amp Cholestyramine Resin (Questran Light Packet -) 4 gm GT BID [facility] Last Admin: 11/15/16 10:28 Dose: 4 gm Clotrimazole (Lotrimin 1% Solution -) 1 applic TP BID [facility] Last Admin: 11/15/16 10:34 Dose: 1 applic Glycopyrrolate (Robinul -) 1 mg GT TID [facility] Last Admin: 11/15/16 06:00 Dose: 1 mg Ertapenem 1 gm/ Sodium (Chloride) 50 mls @ 50 mls/hr IVPB DAILY [facility] Levetiracetam (Keppra Oral Solution -) 500 mg GT BID [facility] Last Admin: 11/15/16 10:28 Dose: 500 mg Magnesium Hydroxide (Milk Of Magnesia -) 30 ml GT DAILY PRN PRN Reason: CONSTIPATION Last Admin: 11/13/16 11:30 Dose: 30 ml Montelukast Sodium (Singulair -) 10 mg GT HS [facility] Last Admin: 11/14/16 22:26 Dose: 10 mg Prednisone (Deltasone -) 30 mg GT DAILY [facility] Ranitidine HCl (Zantac Oral Solution -) 150 mg GT BID [facility] Last Admin: 11/15/16 10:28 Dose: 150 mg Scopolamine HBr (Transderm-Scop -) 1 patch TD Q72H [facility] Last Admin: 11/15/16 10:29 Dose: 1 patch Silver Sulfadiazine (Silvadene -) 1 applic TP BID [facility] Last Admin: 11/15/16 10:33 Dose: 1 applic Sucralfate (Carafate Oral Suspension -) 1 gm GT BID [facility] Last Admin: 11/15/16 10:28 Dose: 1 gm - Objective Vital Signs: Vital Signs Temperature 98.7 F 11/15/16 07:10 Pulse Rate 85 11/15/16 07:10 Respiratory Rate 22 11/15/16 07:10 Blood Pressure 129/70 11/15/16 07:10 O2 Sat by Pulse Oximetry (%) 97 11/14/16 19:49 Constitutional: Yes: No Distress, Calm HENT: Yes: Other (trach in place) Neck: Yes: Supple, Other Cardiovascular: Yes: Regular Rate and Rhythm Respiratory: Yes: Regular, Poor Air Entry Gastrointestinal: Yes: Normal Bowel Sounds, Soft Musculoskeletal: Yes: WNL Extremities: Yes: WNL Neurological: Yes: Alert, Other Labs: CBC, BMP 11/12/16 07:45 11/12/16 07:45 Assessment/Plan pna r/o influenza copd anemia MR fever mdro organism/esbl plan bacterial identification noted changed abx
[2016-11-15] MEDS: MEROPENEM 1 GM in DEXTROSE 5%-WATER - 250 ML IVPB SCH (17:52)
[2016-11-15] MEDS: MONTELUKAST NA 10 MG TABLET GT SCH (21:04)
[2016-11-16] MEDS: ALBUTEROL SO4 2.5/IPRATROPIUM 0.5 INH SOL 3 ML VIAL.NEB. NEB SCH ×5 (00:05→23:00)
[2016-11-16] MEDS: BUDESONIDE 0.25 MG/2ML INH SUSP VIAL NEB SCH ×3 (00:05→22:23)
[2016-11-16] MEDS: MEROPENEM 1 GM in DEXTROSE 5%-WATER - 250 ML IVPB SCH ×3 (01:22→18:11)
[2016-11-16] MEDS: GLYCOPYRROLATE 1 MG TABLET GT SCH ×3 (06:02→21:23)
[2016-11-16] MEDS ORDERED: PT OWN MED DRAWER 7, Y5N ONE ×3 (08:37→21:00)
[2016-11-16] MEDS ORDERED: predniSONE 5 MG/5 ML ORAL SOLN- UNIT-DOSE CUP GT SCH (10:00)
[2016-11-16] MEDS ORDERED: predniSONE 10 MG TABLET (UD) GT SCH (10:00)
[2016-11-16] MEDS: SUCRALFATE 1 GM/10 ML UNIT DOSE CUPS GT SCH ×2 (10:06→21:25)
[2016-11-16] MEDS: SILVER SULFADIAZINE 1% TOP CREAM 400 GM JAR TP SCH ×2 (10:07→22:06)
[2016-11-16] MEDS: levETIRAcetam 500 MG/5 ML ORAL SOLUTION (UNIT-DOSE CUPS) GT SCH ×2 (10:07→21:24)
[2016-11-16] MEDS: RANITIDINE HCL 150 MG/10 ML UNIT-DOSE CUP GT SCH ×2 (10:07→21:24)
[2016-11-16] MEDS: CHOLESTYRAMINE/ASPARTAME 4 GM PACKET GT SCH ×2 (10:08→21:23)
[2016-11-16] MEDS: CLOTRIMAZOLE 1%TOPICAL SOLUTION 30 ML BOTTLE TP SCH ×2 (10:09→22:06)
--- NOTE | 2016-11-16 11:28 | PN ---
Progress Note (short form) - Note Progress Note: Subjective: unable to obtain hx . 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 1- Hypoxia. . likely due to thick secretions and mucous plugging . Also, has trachitits CT scan shows no infiltrate . - cont Meropenem fro ESBL E coli and other MDRO - Rapid flu neg . RVP pending - decrease prednisone dose for tomorrow 2- H/o seizure : cont keppra 3- Possible Upper GI bleed . No further bleed seen . cont PPI patient had a bed at [place] today. I spoke to his sister Jyoti to update her about this . She stated she actually wants her brother on Hospice at [place]. She understands that transferring him to hospice will mean stopping his Abx which might mean worsening infection. She also stressed on keeping him comfortable and no ventilation or resuscitation . I spoke to MACHO Montejo at [place], and explained situation . MACHO montejo , did not have any objection to [facility] placement but also would accept patietn for hospice at [place] if family wants that. Will d/w Ivette Barkley tomorrow , and will arrange for what's in the best interest of the patient. Visit type - Emergency Visit Emergency Visit: Yes ED Registration Date: 11/12/16 Care time: The patient presented to the Emergency Department on the above date and was hospitalized for further evaluation of their emergent condition. - New Patient This patient is new to me today: No - Critical Care Critical Care patient: No
--- NOTE | 2016-11-16 15:50 | PN ---
Progress Note, Physician History of Present Illness: stable no events - Current Medication List Current Medications: Active Medications Albuterol/Ipratropium (Duoneb -) 1 amp NEB QIDR [facility] Last Admin: 11/16/16 11:28 Dose: 1 amp Albuterol/Ipratropium (Duoneb -) 1 amp NEB Q4H PRN PRN Reason: SHORTNESS OF BREATH Bisacodyl (Dulcolax Suppository -) 10 mg RC DAILY PRN PRN Reason: CONSTIPATION Last Admin: 11/12/16 13:01 Dose: 10 mg Budesonide (Pulmicort 0.25 Mg Nebulizer -) 1 amp NEB BID [facility] Last Admin: 11/16/16 11:27 Dose: 1 amp Cholestyramine Resin (Questran Light Packet -) 4 gm GT BID [facility] Last Admin: 11/16/16 10:08 Dose: 4 gm Clotrimazole (Lotrimin 1% Solution -) 1 applic TP BID [facility] Last Admin: 11/16/16 10:09 Dose: 1 applic Glycopyrrolate (Robinul -) 1 mg GT TID [facility] Last Admin: 11/16/16 15:25 Dose: 1 mg Meropenem 1 gm/ Dextrose 250 mls @ 250 mls/hr IVPB Q8H-IV [facility] Last Admin: 11/16/16 10:08 Dose: 250 mls/hr Levetiracetam (Keppra Oral Solution -) 500 mg GT BID [facility] Last Admin: 11/16/16 10:07 Dose: 500 mg Magnesium Hydroxide (Milk Of Magnesia -) 30 ml GT DAILY PRN PRN Reason: CONSTIPATION Last Admin: 11/13/16 11:30 Dose: 30 ml Montelukast Sodium (Singulair -) 10 mg GT HS [facility] Last Admin: 11/15/16 21:04 Dose: 10 mg Prednisone (Deltasone -) 20 mg GT DAILY [facility] Ranitidine HCl (Zantac Oral Solution -) 150 mg GT BID [facility] Last Admin: 11/16/16 10:07 Dose: 150 mg Scopolamine HBr (Transderm-Scop -) 1 patch TD Q72H [facility] Last Admin: 11/15/16 10:29 Dose: 1 patch Silver Sulfadiazine (Silvadene -) 1 applic TP BID [facility] Last Admin: 11/16/16 10:07 Dose: 1 applic Sucralfate (Carafate Oral Suspension -) 1 gm GT BID [facility] Last Admin: 11/16/16 10:06 Dose: 1 gm - Objective Vital Signs: Vital Signs Temperature 98.6 F 11/16/16 10:00 Pulse Rate 77 11/16/16 10:00 Respiratory Rate 18 11/16/16 10:00 Blood Pressure 115/61 11/16/16 10:00 O2 Sat by Pulse Oximetry (%) 97 11/15/16 21:00 Constitutional: Yes: No Distress, Calm Cardiovascular: Yes: Regular Rate and Rhythm Respiratory: Yes: Regular, Poor Air Entry, Rhonchi, Other (secretions improving) Gastrointestinal: Yes: Normal Bowel Sounds, Soft, Other (peg in place) Musculoskeletal: Yes: Other Extremities: Yes: Other Neurological: Yes: Alert, Other Labs: CBC, BMP 11/12/16 07:45 11/12/16 07:45 Assessment/Plan pna r/o influenza copd anemia MR fever mdro organism/esbl plan continue abx continue supportive measures
[2016-11-16] MEDS: MAGNESIUM HYDROX 2400MG/30ML ORAL SUSPENSION 30 ML CUP GT PRN (18:11)
[2016-11-16] MEDS: MONTELUKAST NA 10 MG TABLET GT SCH (21:23)
[2016-11-17] MEDS: MEROPENEM 1 GM in DEXTROSE 5%-WATER - 250 ML IVPB SCH ×3 (01:19→18:28)
[2016-11-17] MEDS: GLYCOPYRROLATE 1 MG TABLET GT SCH ×3 (06:10→22:58)
[2016-11-17] MEDS: ALBUTEROL SO4 2.5/IPRATROPIUM 0.5 INH SOL 3 ML VIAL.NEB. NEB SCH ×3 (06:40→18:25)
--- NOTE | 2016-11-17 09:05 | PN ---
Progress Note (short form) - Note Progress Note: Nonverbal. No fever overnight. NAD On 40% Trach collar. Intake & Output 11/14/16 11/15/16 11/16/16 11/17/16 23:59 23:59 23:59 23:59 Intake Total 1465 1270 1200 Balance 1465 1270 1200 Weight 125 lb 7 oz 143 lb 148 lb 3.2 oz 132 lb Last Vital Signs Temp Pulse Resp BP Pulse Ox 98.4 F 83 20 114/64 97 11/17/16 06:28 11/17/16 06:28 11/17/16 06:28 11/17/16 06:28 11/16/16 21:00 Active Medications Albuterol/Ipratropium (Duoneb -) 1 amp NEB QIDR [facility] Last Admin: 11/17/16 06:40 Dose: 1 amp Albuterol/Ipratropium (Duoneb -) 1 amp NEB Q4H PRN PRN Reason: SHORTNESS OF BREATH Bisacodyl (Dulcolax Suppository -) 10 mg RC DAILY PRN PRN Reason: CONSTIPATION Last Admin: 11/12/16 13:01 Dose: 10 mg Budesonide (Pulmicort 0.25 Mg Nebulizer -) 1 amp NEB BID [facility] Last Admin: 11/16/16 22:23 Dose: 1 amp Cholestyramine Resin (Questran Light Packet -) 4 gm GT BID [facility] Last Admin: 11/16/16 21:23 Dose: 4 gm Clotrimazole (Lotrimin 1% Solution -) 1 applic TP BID [facility] Last Admin: 11/16/16 22:06 Dose: 1 applic Glycopyrrolate (Robinul -) 1 mg GT TID [facility] Last Admin: 11/17/16 06:10 Dose: 1 mg Meropenem 1 gm/ Dextrose 250 mls @ 250 mls/hr IVPB Q8H-IV [facility] Last Admin: 11/17/16 01:19 Dose: 250 mls/hr Levetiracetam (Keppra Oral Solution -) 500 mg GT BID [facility] Last Admin: 11/16/16 21:24 Dose: 500 mg Magnesium Hydroxide (Milk Of Magnesia -) 30 ml GT DAILY PRN PRN Reason: CONSTIPATION Last Admin: 11/16/16 18:11 Dose: 30 ml Montelukast Sodium (Singulair -) 10 mg GT HS [facility] Last Admin: 11/16/16 21:23 Dose: 10 mg Prednisone (Deltasone -) 20 mg GT DAILY [facility] Ranitidine HCl (Zantac Oral Solution -) 150 mg GT BID [facility] Last Admin: 11/16/16 21:24 Dose: 150 mg Scopolamine HBr (Transderm-Scop -) 1 patch TD Q72H [facility] Last Admin: 11/15/16 10:29 Dose: 1 patch Silver Sulfadiazine (Silvadene -) 1 applic TP BID [facility] Last Admin: 11/16/16 22:06 Dose: 1 applic Sucralfate (Carafate Oral Suspension -) 1 gm GT BID [facility] Last Admin: 11/16/16 21:25 Dose: 1 gm Gen: trach collar, breathing nonlabored Heart: RRR Lung: scattered rhonchi Abd: soft, nontender Ext: no edema A/P Acute on Chronic Hypoxic Respiratory Failure Atelectasis Acute Bronchitis Down Syndrome Mental Retardation Seizure Disorder COPD - agree that hypoxia likely due to mucous plugging - recommend stop ABX and observe - O2 to keep SpO2 >90% - taper off prednisone - aspiration precautions - enteral feeds - DVT prophylaxis - D/C planning Dr Alfaro
[2016-11-17] MEDS: BUDESONIDE 0.25 MG/2ML INH SUSP VIAL NEB SCH ×2 (10:04→11:00)
[2016-11-17] MEDS: SUCRALFATE 1 GM/10 ML UNIT DOSE CUPS GT SCH ×2 (11:10→22:54)
[2016-11-17] MEDS: predniSONE 20 MG TABLET (UD) GT SCH (11:10)
[2016-11-17] MEDS: CLOTRIMAZOLE 1%TOPICAL SOLUTION 30 ML BOTTLE TP SCH ×2 (11:11→22:57)
[2016-11-17] MEDS: levETIRAcetam 500 MG/5 ML ORAL SOLUTION (UNIT-DOSE CUPS) GT SCH ×2 (11:11→22:57)
[2016-11-17] MEDS: CHOLESTYRAMINE/ASPARTAME 4 GM PACKET GT SCH ×2 (11:13→22:58)
[2016-11-17] MEDS: SILVER SULFADIAZINE 1% TOP CREAM 400 GM JAR TP SCH ×2 (11:13→22:58)
[2016-11-17] MEDS: RANITIDINE HCL 150 MG/10 ML UNIT-DOSE CUP GT SCH ×2 (11:14→22:58)
--- NOTE | 2016-11-17 13:15 | PN ---
Progress Note, Physician History of Present Illness: stable still secretions but clear - Current Medication List Current Medications: Active Medications Albuterol/Ipratropium (Duoneb -) 1 amp NEB QIDR [facility] Last Admin: 11/17/16 11:00 Dose: 1 amp Albuterol/Ipratropium (Duoneb -) 1 amp NEB Q4H PRN PRN Reason: SHORTNESS OF BREATH Bisacodyl (Dulcolax Suppository -) 10 mg RC DAILY PRN PRN Reason: CONSTIPATION Last Admin: 11/12/16 13:01 Dose: 10 mg Budesonide (Pulmicort 0.25 Mg Nebulizer -) 1 amp NEB BID [facility] Last Admin: 11/17/16 11:00 Dose: 1 amp Cholestyramine Resin (Questran Light Packet -) 4 gm GT BID [facility] Last Admin: 11/17/16 11:13 Dose: 4 gm Clotrimazole (Lotrimin 1% Solution -) 1 applic TP BID [facility] Last Admin: 11/17/16 11:11 Dose: 1 applic Glycopyrrolate (Robinul -) 1 mg GT TID [facility] Last Admin: 11/17/16 06:10 Dose: 1 mg Meropenem 1 gm/ Dextrose 250 mls @ 250 mls/hr IVPB Q8H-IV [facility] Last Admin: 11/17/16 11:12 Dose: 250 mls/hr Levetiracetam (Keppra Oral Solution -) 500 mg GT BID [facility] Last Admin: 11/17/16 11:11 Dose: 500 mg Magnesium Hydroxide (Milk Of Magnesia -) 30 ml GT DAILY PRN PRN Reason: CONSTIPATION Last Admin: 11/16/16 18:11 Dose: 30 ml Montelukast Sodium (Singulair -) 10 mg GT HS [facility] Last Admin: 11/16/16 21:23 Dose: 10 mg Prednisone (Deltasone -) 20 mg GT DAILY [facility] Last Admin: 11/17/16 11:10 Dose: 20 mg Ranitidine HCl (Zantac Oral Solution -) 150 mg GT BID [facility] Last Admin: 11/17/16 11:14 Dose: 150 mg Scopolamine HBr (Transderm-Scop -) 1 patch TD Q72H [facility] Last Admin: 11/15/16 10:29 Dose: 1 patch Silver Sulfadiazine (Silvadene -) 1 applic TP BID [facility] Last Admin: 11/17/16 11:13 Dose: 1 applic Sucralfate (Carafate Oral Suspension -) 1 gm GT BID [facility] Last Admin: 11/17/16 11:10 Dose: 1 gm - Objective Vital Signs: Vital Signs Temperature 98.4 F 11/17/16 06:28 Pulse Rate 90 11/17/16 11:10 Respiratory Rate 20 11/17/16 06:28 Blood Pressure 114/64 11/17/16 06:28 O2 Sat by Pulse Oximetry (%) 94 L 11/17/16 11:10 Constitutional: Yes: No Distress, Calm HENT: Yes: Other Neck: Yes: Supple Respiratory: Yes: Poor Air Entry, Rhonchi Gastrointestinal: Yes: Normal Bowel Sounds, Soft, Other (peg in place) Musculoskeletal: Yes: WNL Extremities: Yes: Other Neurological: Yes: Alert, Other Psychiatric: Yes: Alert Labs: CBC, BMP 11/12/16 07:45 11/12/16 07:45 Assessment/Plan pna r/o influenza copd anemia MR fever mdro organism/esbl plan continue abx continue supportive measures
--- NOTE | 2016-11-17 14:23 | PN ---
Progress Note (short form) - Note Progress Note: Subjective: unable to obtain hx . no events over night Objective: Vital Signs: Last Vital Signs Temp Pulse Resp BP Pulse Ox 98.4 F 90 20 114/64 94 L 11/17/16 06:28 11/17/16 11:10 11/17/16 06:28 11/17/16 06:28 11/17/16 11:10 NAD, non verbal , awake CV: RRR Lungs : decreased breath sounds at bases , b/l rales Abd :soft, NT, ND , PEG in . 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 1- Hypoxia. . likely due to thick secretions and mucous plugging . Also, has trachitits CT scan shows no infiltrate . - cont Meropenem for ESBL E coli and other organisms , day 3 - Rapid flu neg . RVP pending - cont quick prednisone taper 2- H/o seizure : cont keppra 3- Possible Upper GI bleed . cont PPI CAse d/w palliative care team. Further d/w Family and hospice team tomorrow. Visit type - Emergency Visit Emergency Visit: Yes ED Registration Date: 11/12/16 Care time: The patient presented to the Emergency Department on the above date and was hospitalized for further evaluation of their emergent condition. - New Patient This patient is new to me today: No - Critical Care Critical Care patient: No
[2016-11-17] MEDS ORDERED: PT OWN MED DRAWER 7, Y5N ONE ×3 (17:45→22:35)
[2016-11-17] MEDS: MONTELUKAST NA 10 MG TABLET GT SCH (22:58)
[2016-11-18] MEDS: BUDESONIDE 0.25 MG/2ML INH SUSP VIAL NEB SCH ×3 (00:05→22:30)
[2016-11-18] MEDS: ALBUTEROL SO4 2.5/IPRATROPIUM 0.5 INH SOL 3 ML VIAL.NEB. NEB SCH ×5 (00:05→22:59)
[2016-11-18] MEDS ORDERED: PT OWN MED DRAWER 7, Y5N ONE ×6 (01:57→22:38)
[2016-11-18] MEDS: MEROPENEM 1 GM in DEXTROSE 5%-WATER - 250 ML IVPB SCH ×3 (02:32→18:58)
[2016-11-18] MEDS: GLYCOPYRROLATE 1 MG TABLET GT SCH ×3 (06:41→22:54)
--- NOTE | 2016-11-18 08:58 | PN ---
Progress Note (short form) - Note Progress Note: Nonverbal. NAD on 40% Trach collar. No acute events overnight. Intake & Output 11/15/16 11/16/16 11/17/16 11/18/16 23:59 23:59 23:59 23:59 Intake Total 1270 1200 1190 Balance 1270 1200 1190 Weight 143 lb 148 lb 3.2 oz 132 lb 139 lb Last Vital Signs Temp Pulse Resp BP Pulse Ox 98.6 F 80 20 111/77 98 11/18/16 06:00 11/18/16 06:00 11/18/16 06:00 11/18/16 06:00 11/17/16 21:00 Active Medications Albuterol/Ipratropium (Duoneb -) 1 amp NEB QIDR [facility] Last Admin: 11/18/16 07:18 Dose: 1 amp Albuterol/Ipratropium (Duoneb -) 1 amp NEB Q4H PRN PRN Reason: SHORTNESS OF BREATH Bisacodyl (Dulcolax Suppository -) 10 mg RC DAILY PRN PRN Reason: CONSTIPATION Last Admin: 11/12/16 13:01 Dose: 10 mg Budesonide (Pulmicort 0.25 Mg Nebulizer -) 1 amp NEB BID [facility] Last Admin: 11/18/16 00:05 Dose: 1 amp Cholestyramine Resin (Questran Light Packet -) 4 gm GT BID [facility] Last Admin: 11/17/16 22:58 Dose: 4 gm Clotrimazole (Lotrimin 1% Solution -) 1 applic TP BID [facility] Last Admin: 11/17/16 22:57 Dose: 1 applic Glycopyrrolate (Robinul -) 1 mg GT TID [facility] Last Admin: 11/18/16 06:41 Dose: 1 mg Meropenem 1 gm/ Dextrose 250 mls @ 250 mls/hr IVPB Q8H-IV [facility] Last Admin: 11/18/16 02:32 Dose: 250 mls/hr Levetiracetam (Keppra Oral Solution -) 500 mg GT BID [facility] Last Admin: 11/17/16 22:57 Dose: 500 mg Magnesium Hydroxide (Milk Of Magnesia -) 30 ml GT DAILY PRN PRN Reason: CONSTIPATION Last Admin: 11/16/16 18:11 Dose: 30 ml Montelukast Sodium (Singulair -) 10 mg GT HS [facility] Last Admin: 11/17/16 22:58 Dose: 10 mg Prednisone (Deltasone -) 20 mg GT DAILY [facility] Last Admin: 11/17/16 11:10 Dose: 20 mg Ranitidine HCl (Zantac Oral Solution -) 150 mg GT BID [facility] Last Admin: 11/17/16 22:58 Dose: 150 mg Scopolamine HBr (Transderm-Scop -) 1 patch TD Q72H [facility] Last Admin: 11/15/16 10:29 Dose: 1 patch Silver Sulfadiazine (Silvadene -) 1 applic TP BID [facility] Last Admin: 11/17/16 22:58 Dose: 1 applic Sucralfate (Carafate Oral Suspension -) 1 gm GT BID [facility] Last Admin: 11/17/16 22:54 Dose: 1 gm Gen: trach collar, breathing nonlabored Heart: RRR Lung: scattered rhonchi Abd: soft, nontender Ext: no edema A/P Acute on Chronic Hypoxic Respiratory Failure Atelectasis Acute Bronchitis -> possible viral etiology Down Syndrome Mental Retardation Seizure Disorder COPD - agree that hypoxia likely due to mucous plugging - recommend stop ABX and observe - O2 to keep SpO2 >90% - taper off prednisone - aspiration precautions - enteral feeds - DVT prophylaxis - D/C planning Dr Alfaro
[2016-11-18] MEDS: CLOTRIMAZOLE 1%TOPICAL SOLUTION 30 ML BOTTLE TP SCH ×2 (09:30→22:54)
[2016-11-18] MEDS: SILVER SULFADIAZINE 1% TOP CREAM 400 GM JAR TP SCH ×2 (09:30→22:53)
[2016-11-18] MEDS: predniSONE 20 MG TABLET (UD) GT SCH (11:32)
[2016-11-18] MEDS: levETIRAcetam 500 MG/5 ML ORAL SOLUTION (UNIT-DOSE CUPS) GT SCH ×2 (11:32→22:54)
[2016-11-18] MEDS: RANITIDINE HCL 150 MG/10 ML UNIT-DOSE CUP GT SCH ×2 (11:33→22:54)
[2016-11-18] MEDS: SUCRALFATE 1 GM/10 ML UNIT DOSE CUPS GT SCH ×2 (11:33→22:54)
[2016-11-18] MEDS: CHOLESTYRAMINE/ASPARTAME 4 GM PACKET GT SCH ×2 (11:33→22:54)
[2016-11-18] MEDS: SCOPOLAMINE HYDROBROMIDE 1 PATCH PATCH.TD72 TD SCH (11:34)
--- NOTE | 2016-11-18 14:17 | PN ---
Progress Note, Physician History of Present Illness: stable secretions improving - Current Medication List Current Medications: Active Medications Albuterol/Ipratropium (Duoneb -) 1 amp NEB QIDR [facility] Last Admin: 11/18/16 12:00 Dose: 1 amp Albuterol/Ipratropium (Duoneb -) 1 amp NEB Q4H PRN PRN Reason: SHORTNESS OF BREATH Bisacodyl (Dulcolax Suppository -) 10 mg RC DAILY PRN PRN Reason: CONSTIPATION Last Admin: 11/12/16 13:01 Dose: 10 mg Budesonide (Pulmicort 0.25 Mg Nebulizer -) 1 amp NEB BID [facility] Last Admin: 11/18/16 00:05 Dose: 1 amp Cholestyramine Resin (Questran Light Packet -) 4 gm GT BID [facility] Last Admin: 11/18/16 11:33 Dose: 4 gm Clotrimazole (Lotrimin 1% Solution -) 1 applic TP BID [facility] Last Admin: 11/18/16 09:30 Dose: 1 applic Glycopyrrolate (Robinul -) 1 mg GT TID [facility] Last Admin: 11/18/16 14:13 Dose: 1 mg Meropenem 1 gm/ Dextrose 250 mls @ 250 mls/hr IVPB Q8H-IV [facility] Last Admin: 11/18/16 11:41 Dose: 250 mls/hr Levetiracetam (Keppra Oral Solution -) 500 mg GT BID [facility] Last Admin: 11/18/16 11:32 Dose: 500 mg Magnesium Hydroxide (Milk Of Magnesia -) 30 ml GT DAILY PRN PRN Reason: CONSTIPATION Last Admin: 11/16/16 18:11 Dose: 30 ml Montelukast Sodium (Singulair -) 10 mg GT HS [facility] Last Admin: 11/17/16 22:58 Dose: 10 mg Prednisone (Deltasone -) 20 mg GT DAILY [facility] Last Admin: 11/18/16 11:32 Dose: 20 mg Ranitidine HCl (Zantac Oral Solution -) 150 mg GT BID [facility] Last Admin: 11/18/16 11:33 Dose: 150 mg Scopolamine HBr (Transderm-Scop -) 1 patch TD Q72H [facility] Last Admin: 11/18/16 11:34 Dose: 1 patch Silver Sulfadiazine (Silvadene -) 1 applic TP BID [facility] Last Admin: 11/18/16 09:30 Dose: 1 applic Sucralfate (Carafate Oral Suspension -) 1 gm GT BID [facility] Last Admin: 11/18/16 11:33 Dose: 1 gm - Objective Vital Signs: Vital Signs Temperature 98.3 F 11/18/16 10:00 Pulse Rate 72 11/18/16 10:00 Respiratory Rate 19 11/18/16 10:00 Blood Pressure 100/69 11/18/16 10:00 O2 Sat by Pulse Oximetry (%) 98 11/17/16 21:00 Constitutional: Yes: No Distress, Calm Cardiovascular: Yes: Regular Rate and Rhythm Respiratory: Yes: Regular, Poor Air Entry Gastrointestinal: Yes: Normal Bowel Sounds, Soft Musculoskeletal: Yes: WNL Extremities: Yes: WNL Neurological: Yes: Alert, Oriented Psychiatric: Yes: Alert, Oriented Labs: CBC, BMP 11/12/16 07:45 11/12/16 07:45 Assessment/Plan pna r/o influenza copd anemia MR fever mdro organism/esbl plan continue abx continue supportive measures
--- NOTE | 2016-11-18 14:35 | PN ---
Physical Exam: SUBJECTIVE: Patient seen and examined. He is lying comfortable in bed. No events overnight. OBJECTIVE: Vital Signs Period Temp Pulse Resp BP Sys/Rowley Pulse Ox Last 24 Hr 98.3 F-99.6 F 72-100 18-22 100-148/40-78 98 GENERAL: The patient is awake, alert, and fully oriented, in no acute distress. HEAD: Normal with no signs of trauma. EYES: small, PERRL, extraocular movements intact, sclera anicteric, conjunctiva clear. No ptosis. ENT: Ears normal, nares patent, oropharynx clear without exudates, dry mucous membranes, trachea tube inserted. NECK: Trachea midline, full range of motion, supple. LUNGS: Breath sounds equal, rhales and coarse breath sounds bilaterally, no wheezes, no crackles, no accessory muscle use. HEART: Regular rate and rhythm, S1, S2 without murmur, rub or gallop.Peg tube inserted. No redness around. ABDOMEN: Soft, nontender, nondistended, normoactive bowel sounds, no guarding, no rebound, no hepatosplenomegaly, no masses. EXTREMITIES: 2+ pulses, warm, well-perfused, no edema. NEUROLOGICAL: Cranial nerves II through XII grossly intact. Normal speech, gait not observed. PSYCH: Normal mood, normal affect. SKIN: Warm, dry, normal turgor, no rashes or lesions noted Active Medications Generic Name Dose Route Start Last Admin Trade Name Freq PRN Reason Stop Dose Admin Albuterol/Ipratropium 1 amp 11/12/16 06:00 11/18/16 12:00 Duoneb - NEB 1 amp QIDR ERIN Administration Albuterol/Ipratropium 1 amp 11/12/16 10:25 Duoneb - NEB Q4H PRN SHORTNESS OF BREATH Bisacodyl 10 mg 11/12/16 05:19 11/12/16 13:01 Dulcolax Suppository - RC 10 mg DAILY PRN Administration CONSTIPATION Budesonide 1 amp 11/12/16 10:00 11/18/16 14:00 Pulmicort 0.25 Mg Nebulizer - NEB 1 amp BID ERIN Administration Cholestyramine Resin 4 gm 11/12/16 10:00 11/18/16 11:33 Questran Light Packet - GT 4 gm BID ERIN Administration Clotrimazole 1 applic 11/12/16 10:00 11/18/16 09:30 Lotrimin 1% Solution - TP 1 applic BID ERIN Administration Glycopyrrolate 1 mg 11/12/16 06:00 11/18/16 14:13 Robinul - GT 1 mg TID ERIN Administration Meropenem 1 gm/ Dextrose 250 mls @ 250 mls/hr 11/15/16 18:00 11/18/16 11:41 IVPB 250 mls/hr Q8H-IV ERIN Administration Levetiracetam 500 mg 11/14/16 22:00 11/18/16 11:32 Keppra Oral Solution - GT 500 mg BID ERIN Administration Magnesium Hydroxide 30 ml 11/12/16 05:19 11/16/16 18:11 Milk Of Magnesia - GT 30 ml DAILY PRN Administration CONSTIPATION Montelukast Sodium 10 mg 11/12/16 22:00 11/17/16 22:58 Singulair - GT 10 mg HS ERIN Administration Prednisone 20 mg 11/17/16 10:00 11/18/16 11:32 Deltasone - GT 20 mg DAILY ERIN Administration Ranitidine HCl 150 mg 11/12/16 10:00 11/18/16 11:33 Zantac Oral Solution - GT 150 mg BID ERIN Administration Scopolamine HBr 1 patch 11/12/16 10:00 11/18/16 11:34 Transderm-Scop - TD 1 patch Q72H ERIN Administration Silver Sulfadiazine 1 applic 11/12/16 10:00 11/18/16 09:30 Silvadene - TP 1 applic BID ERIN Administration Sucralfate 1 gm 11/12/16 10:00 11/18/16 11:33 Carafate Oral Suspension - GT 1 gm BID ERIN Administration CXR 11/12/16 Since 10/08/2016, again noted is old rib trauma, weak inspiration, prominent mediastinum, tracheostomy tube and some central crowding. Follow-up recommended. CT scan: no infiltrates Sputum culture: E.Coli ESBL, Providencia Stuarti, Morganella Morgani ASSESSMENT/PLAN: 61 year old male with pmh of COPD, asthma, Chronic respiratory failure with trach (03/07/16), Down syndrome with severe MR present to the ED from [place] due to Hypoxia with O2 sat 87%, increased sputum production, lower grade fever. Hypoxia rt to mucus plug r/o PNA, COPD, Asthma, URI, Influenza -hypoxia probably due to mucus production -blood cultures, urine cx negative, Influenza neg. -the pt is on Meropenem, day 4, will continue for 3 more days. Last dose on morning. Consulted ID. -will go to [place] on -suction Q2H and PRN -keep 02 above 90 -continue bronchodilators COPD Exacerbation -continue Duoneb, Sinugulair, solumedrol to 40mg IV daily Anemia: -Hbg 9.9 baseline for the pt -It was reported that there was coffee ground material from G-tube -but no coffee ground emesis was found by day nurse -Stool OB was negative -monitor Seizure disorder -continue Keppra F/E/N No/No/Jevity DVT prophylaxis : SCDs disposition: Stay on med surg. Will be discharged to [facility] on . Problem List - Problems (1) Acute on chronic respiratory failure with hypoxia and hypercapnia Code(s): J96.21 - ACUTE AND CHRONIC RESPIRATORY FAILURE WITH HYPOXIA J96.22 - ACUTE AND CHRONIC RESPIRATORY FAILURE WITH HYPERCAPNIA (2) Anemia due to GI blood loss Code(s): D50.0 - IRON DEFICIENCY ANEMIA SECONDARY TO BLOOD LOSS (CHRONIC) (3) Down syndrome Code(s): Q90.9 - DOWN SYNDROME, UNSPECIFIED (4) Tracheostomy dependence Code(s): Z93.0 - TRACHEOSTOMY STATUS Visit type - Emergency Visit Emergency Visit: Yes ED Registration Date: 11/12/16 Care time: The patient presented to the Emergency Department on the above date and was hospitalized for further evaluation of their emergent condition. - New Patient This patient is new to me today: No - Critical Care Critical Care patient: No - Discharge Referral Referred to [facility] Med P.C.: No
--- NOTE | 2016-11-18 18:04 | PN ---
Teaching Attending Note Name of Resident: Jo Hagan ATTENDING PHYSICIAN STATEMENT I saw and evaluated the patient. I reviewed the resident's note and discussed the case with the resident. I agree with the resident's findings and plan as documented. SUBJECTIVE: no events over night OBJECTIVE: NAD, non verbal , awake CV: RRR Lungs : decreased breath sounds at bases ,minimal rales today , improved air entry Abd :soft, NT, ND , PEG in . nl BS Ext : mild erythema on feet , no edema ASSESSMENT AND PLAN: 61 y/o man with h/o Down's Syndrome with severe MR, COPD, asthma, chronic respiratory failure with trach (03/07/16), recent hospitalization for aspiration PNA , GERD, kyphosis, scoliosis, GI bleeds, PEG, anemia, sepsis and seizure d/ o who was transferred from [place] with hypoxia . 1- Hypoxia. . likely due to thick secretions and mucous plugging . Also, has trachitits - cont Meropenem for ESBL E coli and other organisms ,last dose on . d/ w Dr. Sims - Rapid flu neg . RVP pending -decrease predniosne to 10 mg diali x 2 days . last dose on 2- H/o seizure : cont keppra 3- Possible Upper GI bleed . cont PPI Case d/w Palliative care. Plan is to transfer to [place] on after last dose of Abx. New MOLST form faxed to us allowing use of Abx. He will be Hospice in [place] and will be managed there . Appreciate Palliative care help
[2016-11-18] MEDS: MONTELUKAST NA 10 MG TABLET GT SCH (22:54)
[2016-11-19] MEDS ORDERED: PT OWN MED DRAWER 7, Y5N ONE ×6 (01:46→21:07)
[2016-11-19] MEDS: MEROPENEM 1 GM in DEXTROSE 5%-WATER - 250 ML IVPB SCH ×3 (02:05→17:09)
[2016-11-19] MEDS: GLYCOPYRROLATE 1 MG TABLET GT SCH ×3 (06:28→22:10)
[2016-11-19] MEDS: ALBUTEROL SO4 2.5/IPRATROPIUM 0.5 INH SOL 3 ML VIAL.NEB. NEB SCH ×4 (07:25→23:22)
--- NOTE | 2016-11-19 08:52 | PN ---
Teaching Attending Note Name of Resident: Jo Hagan ATTENDING PHYSICIAN STATEMENT I saw and evaluated the patient. I reviewed the resident's note and discussed the case with the resident. I agree with the resident's findings and plan as documented. SUBJECTIVE: Patient is lying down with no acute distress. On IV antibiotic. Hx of Downs unable to get any history. OBJECTIVE: Vital Signs Temperature 97.8 F 11/19/16 06:26 Pulse Rate 87 11/19/16 05:48 Respiratory Rate 20 11/19/16 05:48 Blood Pressure 108/75 11/19/16 05:48 O2 Sat by Pulse Oximetry (%) 98 11/18/16 21:00 GENERAL: The patient opens eyes, with hx of Down syndrome. in no acute distress. HEAD: Normal with no signs of trauma. EYES: small, PERRL, extraocular movements intact, sclera anicteric, conjunctiva clear. ENT: Ears normal, oropharynx clear without exudates, dry mucous membranes, positive for trach. NECK: Trachea midline, full range of motion, supple. LUNGS: Breath sounds equal, rales and coarse breath sounds bilaterally, no wheezes,crackles, or accessory muscle use. HEART: Regular rate and rhythm, S1, S2 without murmur, rub or gallop. ABDOMEN: Soft, nontender, nondistended, normoactive bowel sounds, Peg tube inserted. No redness around. EXTREMITIES: 2+ pulses, warm, well-perfused,mild rash around left foot. NEUROLOGICAL: Cranial nerves II through XII grossly intact. PSYCH: Unable to access since patient has downs. SKIN: Warm, dry, normal turgor, no rashes or lesions noted CBCD WBC 5.7 K/mm3 (4.0-10.0) 11/12/16 07:45 RBC 3.45 M/mm3 (4.00-5.60) L 11/12/16 07:45 Hgb 9.9 GM/dL (11.7-16.9) L 11/12/16 07:45 Hct 31.5 % (35.4-49) L 11/12/16 07:45 MCV 91.3 fl (80-96) 11/12/16 07:45 MCHC 31.4 g/dl (32.0-35.9) L 11/12/16 07:45 RDW 18.5 % (11.9-15.9) H 11/12/16 07:45 Plt Count 315 K/MM3 (134-434) 11/12/16 07:45 MPV 8.4 fl (7.5-11.1) 11/12/16 07:45 CMP Sodium 140 mmol/L (136-145) 11/12/16 07:45 Potassium 5.1 mmol/L (3.5-5.1) D 11/12/16 07:45 Chloride 105 mmol/L (98-107) 11/12/16 07:45 Carbon Dioxide 29 mmol/L (21-32) 11/12/16 07:45 Anion Gap 6 (8-16) L 11/12/16 07:45 BUN 13 mg/dL (7-18) 11/12/16 07:45 Creatinine 0.8 mg/dL (0.7-1.3) D 11/12/16 07:45 Creat Clearance w eGFR > 60 (>60) 11/12/16 00:27 Random Glucose 124 mg/dL (74-106) H D 11/12/16 07:45 Calcium 8.3 mg/dL (8.5-10.1) L 11/12/16 07:45 Total Bilirubin 0.2 mg/dL (0.2-1.0) D 11/12/16 00:27 AST 18 U/L (15-37) 11/12/16 00:27 ALT 25 U/L (12-78) D 11/12/16 00:27 Alkaline Phosphatase 71 U/L (45-117) D 11/12/16 00:27 Total Protein 6.0 g/dl (6.4-8.2) L 11/12/16 00:27 Albumin 2.5 g/dl (3.4-5.0) L 11/12/16 00:27 CARDIAC ENZYMES Creatine Kinase 158 IU/L (39-308) 11/12/16 00:27 Troponin I < 0.02 ng/ml (0.00-0.05) D 11/12/16 00:27 Current Medications Generic Name Dose Route Start Last Admin Trade Name Freq PRN Reason Stop Dose Admin Albuterol/Ipratropium 1 amp 11/12/16 06:00 11/19/16 07:25 Duoneb - NEB 1 amp QIDR ERIN Administration Albuterol/Ipratropium 1 amp 11/12/16 10:25 Duoneb - NEB Q4H PRN SHORTNESS OF BREATH Bisacodyl 10 mg 11/12/16 05:19 11/12/16 13:01 Dulcolax Suppository - RC 10 mg DAILY PRN Administration CONSTIPATION Budesonide 1 amp 11/12/16 10:00 11/18/16 22:30 Pulmicort 0.25 Mg Nebulizer - NEB 1 amp BID ERIN Administration Cholestyramine Resin 4 gm 11/12/16 10:00 11/18/16 22:54 Questran Light Packet - GT 4 gm BID ERIN Administration Clotrimazole 1 applic 11/12/16 10:00 11/18/16 22:54 Lotrimin 1% Solution - TP 1 applic BID ERIN Administration Glycopyrrolate 1 mg 11/12/16 06:00 11/19/16 06:28 Robinul - GT 1 mg TID ERIN Administration Meropenem 1 gm/ Dextrose 250 mls @ 250 mls/hr 11/15/16 18:00 11/19/16 02:05 IVPB 250 mls/hr Q8H-IV ERIN Administration Levetiracetam 500 mg 11/14/16 22:00 11/18/16 22:54 Keppra Oral Solution - GT 500 mg BID ERIN Administration Magnesium Hydroxide 30 ml 11/12/16 05:19 11/16/16 18:11 Milk Of Magnesia - GT 30 ml DAILY PRN Administration CONSTIPATION Montelukast Sodium 10 mg 11/12/16 22:00 11/18/16 22:54 Singulair - GT 10 mg HS ERIN Administration Prednisone 10 mg 11/19/16 10:00 Deltasone - GT 11/20/16 10:01 DAILY ERIN Ranitidine HCl 150 mg 11/12/16 10:00 11/18/16 22:54 Zantac Oral Solution - GT 150 mg BID ERIN Administration Scopolamine HBr 1 patch 11/12/16 10:00 11/18/16 11:34 Transderm-Scop - TD 1 patch Q72H ERIN Administration Silver Sulfadiazine 1 applic 11/12/16 10:00 11/18/16 22:53 Silvadene - TP 1 applic BID ERIN Administration Sucralfate 1 gm 11/12/16 10:00 01/17/17 22:54 Carafate Oral Suspension - GT 1 gm BID ERIN Administration Medication Instructions Recorded Albuterol 2.5/Ipratropium 0.5 1 neb IH QID 05/02/16 [Duoneb -] Levetiracetam [Keppra Oral 500 mg GT BID 05/02/16 Solution -] Glycopyrrolate [Robinul -] 1 mg GT TID 05/03/16 Magnesium Hydrox 2400MG/30Ml [Milk 30 ml GT DAILY PRN 05/03/16 of Magnesia -] Metoclopramide HCl 10 mg GT BID 05/03/16 Zinc Oxide 1 applic TP BID PRN 05/03/16 Montelukast Na [Singulair -] 10 mg GT HS 07/21/16 Budesonide [Pulmicort 0.25 mg 1 neb NEB BID 08/27/16 Nebulizer -] Clotrimazole [Lotrimin -] 1 applic TP BID 08/27/16 Ranitidine [Zantac -] 150 mg GT BID 08/27/16 Scopolamine Hydrobromide 1 patch TD Q72H 08/27/16 [Transderm-Scop -] Sucralfate Oral Suspension 1 gm GT BID 08/27/16 [Carafate Oral Suspension -] Bisacodyl Suppository [Dulcolax 10 mg RC DAILY PRN 11/12/16 Suppository -] Cholestyramine/Aspartame [Questran 4 gm GT BID 11/12/16 Light Packet -] Ferrous Sulfate [Feosol] 325 mg GT BID 11/12/16 Lactobacillus Acidophilus 1 each GT DAILY 11/12/16 [Acidophilus] Silver Sulfadiazine 1% Top Cr 1 applic TP BID 11/12/16 [Silvadene -] Amoxicillin/Potassium Clav 1 each GT Q12H #14 tablet 11/14/16 [Augmentin 875-125 Tablet] Ciprofloxacin HCl [Cipro] 500 mg GT Q12H #14 tablet 11/14/16 Prednisone 10 mg PO ASDIR #1 tablet 11/14/16 ASSESSMENT AND PLAN: 61 y/o man with h/o Down's Syndrome with severe MR, COPD, asthma, chronic respiratory failure with trach (03/07/16), recent hospitalization for aspiration PNA , GERD, kyphosis, scoliosis, GI bleeds, PEG, anemia, sepsis and seizure d/ o who was transferred from [place] with hypoxia . # Acute Hypoxia with hx of Trach. due to thick secretions and mucous plugging ; On Meropenem for ESBL E coli ,last dose will be in am (). ID - Rapid flu neg . RVP pending ;decrease predniosne to 10 mg dialy x 2 days . last dose on #H/o seizure : cont keppra # Possible Upper GI bleed but H/H is stable , cont PPI Plan is to transfer to [place] on after last dose of Abx. He will be Hospice in [place] and will be managed there . Appreciate Palliative care help
[2016-11-19] MEDS: BUDESONIDE 0.25 MG/2ML INH SUSP VIAL NEB SCH ×2 (10:30→22:22)
--- NOTE | 2016-11-19 10:38 | PN ---
Physical Exam: SUBJECTIVE: Patient seen and examined. The pt is lying in bed comfortably, no overnight events. OBJECTIVE: Vital Signs Period Temp Pulse Resp BP Sys/Rowley Pulse Ox Last 24 Hr 97.1 F-98.6 F 85-92 18-20 102-143/48-75 98-98 GENERAL: The patient is awake, alert, nonverbal in no acute distress. HEAD: Normal with no signs of trauma. EYES: small, PERRL, sclera anicteric, conjunctiva clear. No ptosis. ENT: Ears normal, nares patent, oropharynx clear without exudates, dry mucous membranes. NECK: Trachea midline, full range of motion, supple, tracheostomy tube inserted. LUNGS: Breath sounds equal,coarse breath sounds and rhonchi bilaterally, no wheezes, no crackles, no accessory muscle use. HEART: Regular rate and rhythm, S1, S2 without murmur, rub or gallop. ABDOMEN: Soft, nontender, nondistended, normoactive bowel sounds, no guarding, no rebound, no hepatosplenomegaly, no masses, PEG tube, no redness. EXTREMITIES: 2+ pulses, warm, well-perfused, no edema. NEUROLOGICAL: Cranial nerves II through XII grossly intact. Normal speech, gait not observed. PSYCH: Normal mood, normal affect. SKIN: Warm, dry, normal turgor, rash in left foot. Active Medications Generic Name Dose Route Start Last Admin Trade Name Freq PRN Reason Stop Dose Admin Albuterol/Ipratropium 1 amp 11/12/16 06:00 11/19/16 07:25 Duoneb - NEB 1 amp QIDR ERIN Administration Albuterol/Ipratropium 1 amp 11/12/16 10:25 Duoneb - NEB Q4H PRN SHORTNESS OF BREATH Bisacodyl 10 mg 11/12/16 05:19 11/12/16 13:01 Dulcolax Suppository - RC 10 mg DAILY PRN Administration CONSTIPATION Budesonide 1 amp 11/12/16 10:00 11/18/16 22:30 Pulmicort 0.25 Mg Nebulizer - NEB 1 amp BID ERIN Administration Cholestyramine Resin 4 gm 11/12/16 10:00 11/18/16 22:54 Questran Light Packet - GT 4 gm BID ERIN Administration Clotrimazole 1 applic 11/12/16 10:00 11/18/16 22:54 Lotrimin 1% Solution - TP 1 applic BID ERIN Administration Glycopyrrolate 1 mg 11/12/16 06:00 11/19/16 06:28 Robinul - GT 1 mg TID ERIN Administration Hydrocortisone 1 applic 11/19/16 09:59 Hytone 1% Cream - TP BID PRN WOUND CARE Meropenem 1 gm/ Dextrose 250 mls @ 250 mls/hr 11/15/16 18:00 11/19/16 02:05 IVPB 250 mls/hr Q8H-IV ERIN Administration Levetiracetam 500 mg 11/14/16 22:00 11/18/16 22:54 Keppra Oral Solution - GT 500 mg BID ERIN Administration Magnesium Hydroxide 30 ml 11/12/16 05:19 11/16/16 18:11 Milk Of Magnesia - GT 30 ml DAILY PRN Administration CONSTIPATION Montelukast Sodium 10 mg 11/12/16 22:00 11/18/16 22:54 Singulair - GT 10 mg HS ERIN Administration Prednisone 10 mg 11/19/16 10:00 Deltasone - GT 11/20/16 10:01 DAILY ERIN Ranitidine HCl 150 mg 11/12/16 10:00 11/18/16 22:54 Zantac Oral Solution - GT 150 mg BID ERIN Administration Scopolamine HBr 1 patch 11/12/16 10:00 11/18/16 11:34 Transderm-Scop - TD 1 patch Q72H ERIN Administration Silver Sulfadiazine 1 applic 11/12/16 10:00 11/18/16 22:53 Silvadene - TP 1 applic BID ERIN Administration Sucralfate 1 gm 11/12/16 10:00 11/18/16 22:54 Carafate Oral Suspension - GT 1 gm BID ERIN Administration ASSESSMENT/PLAN: 61 year old male with pmh of COPD, asthma, Chronic respiratory failure with trach (03/07/16), Down syndrome with severe MR present to the ED from [place] due to hypoxia with O2 sat 87%, increased sputum production, lower grade fever. Hypoxia rt to mucus plug r/o PNA, COPD, Asthma, URI, Influenza -hypoxia probably due to mucus production -blood cultures, urine cx negative, Influenza neg. -the pt is on Meropenem, day 5, will continue to morning. Consulted ID. -will go to [place] on -suction Q2H and PRN -keep 02 above 90 -continue bronchodilators COPD Exacerbation -continue Duoneb, Sinugulair, solumedrol to 40mg IV daily Anemia: -Hbg 9.9 baseline for the pt -It was reported that there was coffee ground material from G-tube -but no coffee ground emesis was found by day nurse -Stool OB was negative -monitor Seizure disorder -continue Keppra LE rash: -ordered Hydrocortisone cream 1% BID F/E/N No/No/Jevity DVT prophylaxis : SCDs disposition: Stay on med surg. Will be discharged to [facility] tomorrow. Problem List - Problems (1) Acute on chronic respiratory failure with hypoxia and hypercapnia Code(s): J96.21 - ACUTE AND CHRONIC RESPIRATORY FAILURE WITH HYPOXIA J96.22 - ACUTE AND CHRONIC RESPIRATORY FAILURE WITH HYPERCAPNIA (2) Anemia due to GI blood loss Code(s): D50.0 - IRON DEFICIENCY ANEMIA SECONDARY TO BLOOD LOSS (CHRONIC) (3) Down syndrome Code(s): Q90.9 - DOWN SYNDROME, UNSPECIFIED (4) Tracheostomy dependence Code(s): Z93.0 - TRACHEOSTOMY STATUS Visit type - Emergency Visit Emergency Visit: Yes ED Registration Date: 11/12/16 Care time: The patient presented to the Emergency Department on the above date and was hospitalized for further evaluation of their emergent condition. - New Patient This patient is new to me today: No - Critical Care Critical Care patient: No - Discharge Referral Referred to [facility] Med P.C.: No
[2016-11-19] MEDS: CHOLESTYRAMINE/ASPARTAME 4 GM PACKET GT SCH ×2 (11:10→22:10)
[2016-11-19] MEDS: SUCRALFATE 1 GM/10 ML UNIT DOSE CUPS GT SCH ×2 (11:10→22:09)
[2016-11-19] MEDS: RANITIDINE HCL 150 MG/10 ML UNIT-DOSE CUP GT SCH ×2 (11:10→22:09)
[2016-11-19] MEDS: CLOTRIMAZOLE 1%TOPICAL SOLUTION 30 ML BOTTLE TP SCH (11:11)
[2016-11-19] MEDS: predniSONE 10 MG TABLET (UD) GT SCH (11:11)
[2016-11-19] MEDS: levETIRAcetam 500 MG/5 ML ORAL SOLUTION (UNIT-DOSE CUPS) GT SCH ×2 (11:11→22:09)
[2016-11-19] MEDS: SILVER SULFADIAZINE 1% TOP CREAM 400 GM JAR TP SCH ×2 (11:11→22:11)
[2016-11-19] MEDS: HYDROCORTISONE 1% TOPICAL CREAM 30 GM TUBE TP PRN ×2 (14:11→22:12)
--- NOTE | 2016-11-19 15:30 | PN ---
Progress Note, Physician History of Present Illness: pulmonary awake,congested, on trach collar - Current Medication List Current Medications: Active Medications Albuterol/Ipratropium (Duoneb -) 1 amp NEB QIDR [facility] Last Admin: 11/19/16 11:44 Dose: 1 amp Albuterol/Ipratropium (Duoneb -) 1 amp NEB Q4H PRN PRN Reason: SHORTNESS OF BREATH Bisacodyl (Dulcolax Suppository -) 10 mg RC DAILY PRN PRN Reason: CONSTIPATION Last Admin: 11/12/16 13:01 Dose: 10 mg Budesonide (Pulmicort 0.25 Mg Nebulizer -) 1 amp NEB BID [facility] Last Admin: 11/19/16 10:30 Dose: 1 amp Cholestyramine Resin (Questran Light Packet -) 4 gm GT BID [facility] Last Admin: 11/19/16 11:10 Dose: 4 gm Clotrimazole (Lotrimin 1% Solution -) 1 applic TP BID [facility] Last Admin: 11/19/16 11:11 Dose: 1 applic Glycopyrrolate (Robinul -) 1 mg GT TID [facility] Last Admin: 11/19/16 14:11 Dose: 1 mg Hydrocortisone (Hytone 1% Cream -) 1 applic TP Q12H PRN PRN Reason: WOUND CARE Last Admin: 11/19/16 14:11 Dose: 1 applic Meropenem 1 gm/ Dextrose 250 mls @ 250 mls/hr IVPB Q8H-IV [facility] Last Admin: 11/19/16 11:45 Dose: 250 mls/hr Levetiracetam (Keppra Oral Solution -) 500 mg GT BID [facility] Last Admin: 11/19/16 11:11 Dose: 500 mg Magnesium Hydroxide (Milk Of Magnesia -) 30 ml GT DAILY PRN PRN Reason: CONSTIPATION Last Admin: 11/16/16 18:11 Dose: 30 ml Montelukast Sodium (Singulair -) 10 mg GT HS [facility] Last Admin: 11/18/16 22:54 Dose: 10 mg Prednisone (Deltasone -) 10 mg GT DAILY [facility] Stop: 11/20/16 10:01 Last Admin: 11/19/16 11:11 Dose: 10 mg Ranitidine HCl (Zantac Oral Solution -) 150 mg GT BID [facility] Last Admin: 11/19/16 11:10 Dose: 150 mg Scopolamine HBr (Transderm-Scop -) 1 patch TD Q72H [facility] Last Admin: 11/18/16 11:34 Dose: 1 patch Silver Sulfadiazine (Silvadene -) 1 applic TP BID [facility] Last Admin: 11/19/16 11:11 Dose: 1 applic Sucralfate (Carafate Oral Suspension -) 1 gm GT BID [facility] Last Admin: 11/19/16 11:10 Dose: 1 gm - Objective Vital Signs: Vital Signs Temperature 98.5 F 11/19/16 15:12 Pulse Rate 83 11/19/16 15:12 Respiratory Rate 20 11/19/16 15:12 Blood Pressure 101/63 11/19/16 15:12 O2 Sat by Pulse Oximetry (%) 98 11/18/16 21:00 Constitutional: Yes: Well Nourished, Other (awake) Eyes: Yes: WNL HENT: Yes: WNL Neck: Yes: Supple Cardiovascular: Yes: Regular Rate and Rhythm, S1, S2 Respiratory: Yes: Rhonchi (ana rhonchi) Gastrointestinal: Yes: Normal Bowel Sounds, Soft Extremities: Yes: WNL Edema: No Labs: CBC, BMP Problem List - Problems (1) Acute on chronic respiratory failure with hypoxia and hypercapnia Code(s): J96.21 - ACUTE AND CHRONIC RESPIRATORY FAILURE WITH HYPOXIA J96.22 - ACUTE AND CHRONIC RESPIRATORY FAILURE WITH HYPERCAPNIA (2) Anemia due to GI blood loss Code(s): D50.0 - IRON DEFICIENCY ANEMIA SECONDARY TO BLOOD LOSS (CHRONIC) (3) Tracheitis Code(s): J04.10 - ACUTE TRACHEITIS WITHOUT OBSTRUCTION (4) Airway clearance impairment Code(s): R06.89 - OTHER ABNORMALITIES OF BREATHING (5) Down syndrome Code(s): Q90.9 - DOWN SYNDROME, UNSPECIFIED (6) Tracheostomy dependence Code(s): Z93.0 - TRACHEOSTOMY STATUS (7) Hospital-acquired pneumonia Code(s): J18.9 - PNEUMONIA, UNSPECIFIED ORGANISM (8) Anemia Code(s): D64.9 - ANEMIA, UNSPECIFIED (9) Colonization with drug-resistant bacteria Code(s): Z22.39 - CARRIER OF OTHER SPECIFIED BACTERIAL DISEASES (10) Mental retardation Code(s): F79 - UNSPECIFIED INTELLECTUAL DISABILITIES (11) Seizure disorder Code(s): G40.909 - EPILEPSY, UNSP, NOT INTRACTABLE, WITHOUT STATUS EPILEPTICUS Assessment/Plan A/P Acute on Chronic Hypoxic Respiratory Failure Acute Bronchitis Down Syndrome Mental Retardation Seizure Disorder COPD - agree that hypoxia likely due to mucous plugging - O2 to keep SpO2 >90% - antibiotics as per id - prednisone taper - aspiration precautions - enteral feeds - DVT prophylaxis - tracheal suctioning - chest x-ray DR HAILE
--- NOTE | 2016-11-19 16:00 | PN ---
Progress Note, Physician History of Present Illness: stable secretions still present whitish in color has remained stable - Current Medication List Current Medications: Active Medications Albuterol/Ipratropium (Duoneb -) 1 amp NEB QIDR [facility] Last Admin: 11/19/16 11:44 Dose: 1 amp Albuterol/Ipratropium (Duoneb -) 1 amp NEB Q4H PRN PRN Reason: SHORTNESS OF BREATH Bisacodyl (Dulcolax Suppository -) 10 mg RC DAILY PRN PRN Reason: CONSTIPATION Last Admin: 11/12/16 13:01 Dose: 10 mg Budesonide (Pulmicort 0.25 Mg Nebulizer -) 1 amp NEB BID [facility] Last Admin: 11/19/16 10:30 Dose: 1 amp Cholestyramine Resin (Questran Light Packet -) 4 gm GT BID [facility] Last Admin: 11/19/16 11:10 Dose: 4 gm Clotrimazole (Lotrimin 1% Solution -) 1 applic TP BID [facility] Last Admin: 11/19/16 11:11 Dose: 1 applic Glycopyrrolate (Robinul -) 1 mg GT TID [facility] Last Admin: 11/19/16 14:11 Dose: 1 mg Hydrocortisone (Hytone 1% Cream -) 1 applic TP Q12H PRN PRN Reason: WOUND CARE Last Admin: 11/19/16 14:11 Dose: 1 applic Meropenem 1 gm/ Dextrose 250 mls @ 250 mls/hr IVPB Q8H-IV [facility] Last Admin: 11/19/16 11:45 Dose: 250 mls/hr Levetiracetam (Keppra Oral Solution -) 500 mg GT BID [facility] Last Admin: 11/19/16 11:11 Dose: 500 mg Magnesium Hydroxide (Milk Of Magnesia -) 30 ml GT DAILY PRN PRN Reason: CONSTIPATION Last Admin: 11/16/16 18:11 Dose: 30 ml Montelukast Sodium (Singulair -) 10 mg GT HS [facility] Last Admin: 11/18/16 22:54 Dose: 10 mg Prednisone (Deltasone -) 10 mg GT DAILY [facility] Stop: 11/20/16 10:01 Last Admin: 11/19/16 11:11 Dose: 10 mg Ranitidine HCl (Zantac Oral Solution -) 150 mg GT BID [facility] Last Admin: 11/19/16 11:10 Dose: 150 mg Scopolamine HBr (Transderm-Scop -) 1 patch TD Q72H [facility] Last Admin: 11/18/16 11:34 Dose: 1 patch Silver Sulfadiazine (Silvadene -) 1 applic TP BID [facility] Last Admin: 11/19/16 11:11 Dose: 1 applic Sucralfate (Carafate Oral Suspension -) 1 gm GT BID [facility] Last Admin: 11/19/16 11:10 Dose: 1 gm - Objective Vital Signs: Vital Signs Temperature 98.5 F 11/19/16 15:12 Pulse Rate 83 11/19/16 15:12 Respiratory Rate 20 11/19/16 15:12 Blood Pressure 101/63 11/19/16 15:12 O2 Sat by Pulse Oximetry (%) 98 11/18/16 21:00 Constitutional: Yes: No Distress Neck: Yes: Other Cardiovascular: Yes: Regular Rate and Rhythm Respiratory: Yes: Regular, Poor Air Entry Gastrointestinal: Yes: Normal Bowel Sounds, Soft, Other (peg tube in place) Musculoskeletal: Yes: WNL Extremities: Yes: Other Neurological: Yes: Alert, Other Labs: CBC, BMP 11/12/16 07:45 11/12/16 07:45 Assessment/Plan pna r/o influenza copd anemia MR fever mdro organism/esbl plan continue abx continue supportive measures continue suctioning can stop abx after tomorrows dose
[2016-11-19] MEDS: MONTELUKAST NA 10 MG TABLET GT SCH (22:10)
[2016-11-20] MEDS: CLOTRIMAZOLE 1%TOPICAL SOLUTION 30 ML BOTTLE TP SCH ×3 (00:05→22:52)
[2016-11-20] MEDS ORDERED: PT OWN MED DRAWER 7, Y5N ONE ×5 (02:18→22:51)
[2016-11-20] MEDS: MEROPENEM 1 GM in DEXTROSE 5%-WATER - 250 ML IVPB SCH ×2 (02:26→09:05)
[2016-11-20] MEDS: ALBUTEROL SO4 2.5/IPRATROPIUM 0.5 INH SOL 3 ML VIAL.NEB. NEB SCH ×4 (06:08→23:01)
[2016-11-20] MEDS: GLYCOPYRROLATE 1 MG TABLET GT SCH ×3 (06:46→23:21)
--- NOTE | 2016-11-20 08:52 | PN ---
Progress Note (short form) - Note Progress Note: Nonverbal. NAD on 40% Trach collar. No acute events overnight. CXR: Residual infiltrate / atelectasis at the right base. Intake & Output 11/17/16 11/18/16 11/19/16 11/20/16 23:59 23:59 23:59 23:59 Intake Total 1190 1546 2310 Output Total 1 Balance 1190 1546 2309 Weight 132 lb 139 lb 127 lb 12.8 oz 126 lb 12.8 oz Last Vital Signs Temp Pulse Resp BP Pulse Ox 68.2 F L 94 H 20 106/72 97 11/20/16 05:46 11/20/16 05:46 11/20/16 05:46 11/20/16 05:46 11/19/16 21:00 Active Medications Albuterol/Ipratropium (Duoneb -) 1 amp NEB QIDR [facility] Last Admin: 11/20/16 06:08 Dose: 1 amp Albuterol/Ipratropium (Duoneb -) 1 amp NEB Q4H PRN PRN Reason: SHORTNESS OF BREATH Bisacodyl (Dulcolax Suppository -) 10 mg RC DAILY PRN PRN Reason: CONSTIPATION Last Admin: 11/12/16 13:01 Dose: 10 mg Budesonide (Pulmicort 0.25 Mg Nebulizer -) 1 amp NEB BID [facility] Last Admin: 11/19/16 22:22 Dose: 1 amp Cholestyramine Resin (Questran Light Packet -) 4 gm GT BID [facility] Last Admin: 11/19/16 22:10 Dose: 4 gm Clotrimazole (Lotrimin 1% Solution -) 1 applic TP BID [facility] Last Admin: 11/20/16 00:05 Dose: 1 applic Glycopyrrolate (Robinul -) 1 mg GT TID [facility] Last Admin: 11/20/16 06:46 Dose: 1 mg Hydrocortisone (Hytone 1% Cream -) 1 applic TP Q12H PRN PRN Reason: WOUND CARE Last Admin: 11/19/16 22:12 Dose: 1 applic Meropenem 1 gm/ Dextrose 250 mls @ 250 mls/hr IVPB Q8H-IV [facility] Last Admin: 11/20/16 02:26 Dose: 250 mls/hr Levetiracetam (Keppra Oral Solution -) 500 mg GT BID [facility] Last Admin: 11/19/16 22:09 Dose: 500 mg Magnesium Hydroxide (Milk Of Magnesia -) 30 ml GT DAILY PRN PRN Reason: CONSTIPATION Last Admin: 11/16/16 18:11 Dose: 30 ml Montelukast Sodium (Singulair -) 10 mg GT HS [facility] Last Admin: 11/19/16 22:10 Dose: 10 mg Prednisone (Deltasone -) 10 mg GT DAILY [facility] Stop: 11/20/16 10:01 Last Admin: 11/19/16 11:11 Dose: 10 mg Ranitidine HCl (Zantac Oral Solution -) 150 mg GT BID [facility] Last Admin: 11/19/16 22:09 Dose: 150 mg Scopolamine HBr (Transderm-Scop -) 1 patch TD Q72H [facility] Last Admin: 11/18/16 11:34 Dose: 1 patch Silver Sulfadiazine (Silvadene -) 1 applic TP BID [facility] Last Admin: 11/19/16 22:11 Dose: 1 applic Sucralfate (Carafate Oral Suspension -) 1 gm GT BID [facility] Last Admin: 11/19/16 22:09 Dose: 1 gm Gen: trach collar, breathing nonlabored Heart: RRR Lung: scattered rhonchi Abd: soft, nontender Ext: no edema A/P Acute on Chronic Hypoxic Respiratory Failure Atelectasis Acute Bronchitis Down Syndrome Mental Retardation Seizure Disorder COPD - recommend stop ABX and observe - O2 to keep SpO2 >90% - prednisone taper - aspiration precautions - enteral feeds - DVT prophylaxis - No Pulmonary contraindication for D/C Dr Alfaro
--- NOTE | 2016-11-20 08:58 | PN ---
Teaching Attending Note Name of Resident: Jo Hagan ATTENDING PHYSICIAN STATEMENT I saw and evaluated the patient. I reviewed the resident's note and discussed the case with the resident. I agree with the resident's findings and plan as documented. SUBJECTIVE: Patient is comfortable with no acute distress. no fever or chills. OBJECTIVE: Vital Signs Temperature 68.2 F L 11/20/16 05:46 Pulse Rate 94 H 11/20/16 05:46 Respiratory Rate 20 11/20/16 05:46 Blood Pressure 106/72 11/20/16 05:46 O2 Sat by Pulse Oximetry (%) 97 11/19/16 21:00 CBCD WBC 5.7 K/mm3 (4.0-10.0) 11/12/16 07:45 RBC 3.45 M/mm3 (4.00-5.60) L 11/12/16 07:45 Hgb 9.9 GM/dL (11.7-16.9) L 11/12/16 07:45 Hct 31.5 % (35.4-49) L 11/12/16 07:45 MCV 91.3 fl (80-96) 11/12/16 07:45 MCHC 31.4 g/dl (32.0-35.9) L 11/12/16 07:45 RDW 18.5 % (11.9-15.9) H 11/12/16 07:45 Plt Count 315 K/MM3 (134-434) 11/12/16 07:45 MPV 8.4 fl (7.5-11.1) 11/12/16 07:45 CMP Sodium 140 mmol/L (136-145) 11/12/16 07:45 Potassium 5.1 mmol/L (3.5-5.1) D 11/12/16 07:45 Chloride 105 mmol/L (98-107) 11/12/16 07:45 Carbon Dioxide 29 mmol/L (21-32) 11/12/16 07:45 Anion Gap 6 (8-16) L 11/12/16 07:45 BUN 13 mg/dL (7-18) 11/12/16 07:45 Creatinine 0.8 mg/dL (0.7-1.3) D 11/12/16 07:45 Creat Clearance w eGFR > 60 (>60) 11/12/16 00:27 Random Glucose 124 mg/dL (74-106) H D 11/12/16 07:45 Calcium 8.3 mg/dL (8.5-10.1) L 11/12/16 07:45 Total Bilirubin 0.2 mg/dL (0.2-1.0) D 11/12/16 00:27 AST 18 U/L (15-37) 11/12/16 00:27 ALT 25 U/L (12-78) D 11/12/16 00:27 Alkaline Phosphatase 71 U/L (45-117) D 11/12/16 00:27 Total Protein 6.0 g/dl (6.4-8.2) L 11/12/16 00:27 Albumin 2.5 g/dl (3.4-5.0) L 11/12/16 00:27 CARDIAC ENZYMES Creatine Kinase 158 IU/L (39-308) 11/12/16 00:27 Troponin I < 0.02 ng/ml (0.00-0.05) D 11/12/16 00:27 Current Medications Generic Name Dose Route Start Last Admin Trade Name Freq PRN Reason Stop Dose Admin Albuterol/Ipratropium 1 amp 11/12/16 06:00 11/20/16 06:08 Duoneb - NEB 1 amp QIDR [facility] Administration Albuterol/Ipratropium 1 amp 11/12/16 10:25 Duoneb - NEB Q4H PRN SHORTNESS OF BREATH Bisacodyl 10 mg 11/12/16 05:19 11/12/16 13:01 Dulcolax Suppository - RC 10 mg DAILY PRN Administration CONSTIPATION Budesonide 1 amp 11/12/16 10:00 11/19/16 22:22 Pulmicort 0.25 Mg Nebulizer - NEB 1 amp BID [facility] Administration Cholestyramine Resin 4 gm 11/12/16 10:00 11/19/16 22:10 Questran Light Packet - GT 4 gm BID [facility] Administration Clotrimazole 1 applic 11/12/16 10:00 11/20/16 00:05 Lotrimin 1% Solution - TP 1 applic BID [facility] Administration Glycopyrrolate 1 mg 11/12/16 06:00 11/20/16 06:46 Robinul - GT 1 mg TID [facility] Administration Hydrocortisone 1 applic 11/19/16 09:59 11/19/16 22:12 Hytone 1% Cream - TP 1 applic Q12H PRN Administration WOUND CARE Meropenem 1 gm/ Dextrose 250 mls @ 250 mls/hr 11/15/16 18:00 11/20/16 02:26 IVPB 250 mls/hr Q8H-IV [facility] Administration Levetiracetam 500 mg 11/14/16 22:00 11/19/16 22:09 Keppra Oral Solution - GT 500 mg BID [facility] Administration Magnesium Hydroxide 30 ml 11/12/16 05:19 11/16/16 18:11 Milk Of Magnesia - GT 30 ml DAILY PRN Administration CONSTIPATION Montelukast Sodium 10 mg 11/12/16 22:00 11/19/16 22:10 Singulair - GT 10 mg HS [facility] Administration Prednisone 10 mg 11/19/16 10:00 11/19/16 11:11 Deltasone - GT 11/20/16 10:01 10 mg DAILY [facility] Administration Ranitidine HCl 150 mg 11/12/16 10:00 11/19/16 22:09 Zantac Oral Solution - GT 150 mg BID [facility] Administration Scopolamine HBr 1 patch 11/12/16 10:00 11/18/16 11:34 Transderm-Scop - TD 1 patch Q72H [facility] Administration Silver Sulfadiazine 1 applic 11/12/16 10:00 11/19/16 22:11 Silvadene - TP 1 applic BID [facility] Administration Sucralfate 1 gm 11/12/16 10:00 11/19/16 22:09 Carafate Oral Suspension - GT 1 gm BID [facility] Administration Medication Instructions Recorded Albuterol 2.5/Ipratropium 0.5 1 neb IH QID 05/02/16 [Duoneb -] Levetiracetam [Keppra Oral 500 mg GT BID 05/02/16 Solution -] Glycopyrrolate [Robinul -] 1 mg GT TID 05/03/16 Magnesium Hydrox 2400MG/30Ml [Milk 30 ml GT DAILY PRN 05/03/16 of Magnesia -] Metoclopramide HCl 10 mg GT BID 05/03/16 Zinc Oxide 1 applic TP BID PRN 05/03/16 Montelukast Na [Singulair -] 10 mg GT HS 07/21/16 Budesonide [Pulmicort 0.25 mg 1 neb NEB BID 08/27/16 Nebulizer -] Clotrimazole [Lotrimin -] 1 applic TP BID 08/27/16 Ranitidine [Zantac -] 150 mg GT BID 08/27/16 Scopolamine Hydrobromide 1 patch TD Q72H 08/27/16 [Transderm-Scop -] Sucralfate Oral Suspension 1 gm GT BID 08/27/16 [Carafate Oral Suspension -] Bisacodyl Suppository [Dulcolax 10 mg RC DAILY PRN 11/12/16 Suppository -] Cholestyramine/Aspartame [Questran 4 gm GT BID 11/12/16 Light Packet -] Ferrous Sulfate [Feosol] 325 mg GT BID 11/12/16 Lactobacillus Acidophilus 1 each GT DAILY 11/12/16 [Acidophilus] Silver Sulfadiazine 1% Top Cr 1 applic TP BID 11/12/16 [Silvadene -] Amoxicillin/Potassium Clav 1 each GT Q12H #14 tablet 11/14/16 [Augmentin 875-125 Tablet] Ciprofloxacin HCl [Cipro] 500 mg GT Q12H #14 tablet 11/14/16 Prednisone 10 mg PO ASDIR #1 tablet 11/14/16 Urine Test Results Urine Color Lt. yellow 11/12/16 17:00 Urine Appearance Clear 11/12/16 17:00 Urine pH 6.0 (5.0-8.0) 11/12/16 17:00 Ur Specific [place] 1.010 (1.001-1.035) 11/12/16 17:00 Urine Protein Negative (NEGATIVE) 11/12/16 17:00 Urine Glucose (UA) Negative (NEGATIVE) 11/12/16 17:00 Urine Ketones Negative (NEGATIVE) 11/12/16 17:00 Urine Blood Negative (NEGATIVE) 11/12/16 17:00 Urine Nitrite Negative (NEGATIVE) 11/12/16 17:00 Urine Bilirubin Negative (NEGATIVE) 11/12/16 17:00 Ur Leukocyte Esterase Negative (NEGATIVE) 11/12/16 17:00 ASSESSMENT AND PLAN: 61 y/o man with h/o Down's Syndrome with severe MR, COPD, asthma, chronic respiratory failure with trach (03/07/16), recent hospitalization for aspiration PNA , GERD, kyphosis, scoliosis, GI bleeds, PEG, anemia, sepsis and seizure d/ o who was transferred from [place] with hypoxia . # Acute Hypoxia improved on with hx of Trach. on oxygen continue , Last dose of Meropenem today for ESBL E coli. ID - Rapid flu neg . RVP pending ; prednisone 10 mg po daily continue. #H/o seizure : cont keppra # Possible Upper GI bleed but H/H is stable , cont PPI Plan is getting transfered to [place] today. He will be Hospice in [place] and will be managed there . Appreciate Palliative care help
[2016-11-20] MEDS: predniSONE 10 MG TABLET (UD) GT SCH (09:05)
[2016-11-20] MEDS: RANITIDINE HCL 150 MG/10 ML UNIT-DOSE CUP GT SCH ×2 (09:05→22:51)
[2016-11-20] MEDS: SUCRALFATE 1 GM/10 ML UNIT DOSE CUPS GT SCH ×2 (09:05→22:51)
[2016-11-20] MEDS: CHOLESTYRAMINE/ASPARTAME 4 GM PACKET GT SCH ×2 (09:06→22:51)
[2016-11-20] MEDS: levETIRAcetam 500 MG/5 ML ORAL SOLUTION (UNIT-DOSE CUPS) GT SCH ×2 (09:06→23:21)
[2016-11-20] MEDS: SILVER SULFADIAZINE 1% TOP CREAM 400 GM JAR TP SCH ×2 (09:07→22:52)
[2016-11-20] MEDS: BUDESONIDE 0.25 MG/2ML INH SUSP VIAL NEB SCH ×2 (10:50→21:34)
--- NOTE | 2016-11-20 11:57 | DS ---
Physical Exam: SUBJECTIVE: Patient seen and examined,. No overnight events. He is nonverbal. Trachea inserted, no skin changes. OBJECTIVE: Vital Signs Period Temp Pulse Resp BP Sys/[place]ley Pulse Ox Last 24 Hr 68.2 F-98.5 F 83-94 18-20 101-117/58-72 97-97 PHYSICAL EXAM GENERAL: The patient is awake, alert, and fully oriented, in no acute distress. HEAD: Normal with no signs of trauma. EYES: PERRL, extraocular movements intact, sclera anicteric, conjunctiva clear. ENT: Ears normal, nares patent, oropharynx clear without exudates, moist mucous membranes. NECK: Trachea midline, full range of motion, supple. LUNGS: Breath sounds equal, rhales bilaterally, no wheezes, no crackles, no accessory muscle use. HEART: Regular rate and rhythm, S1, S2 without murmur, rub or gallop. ABDOMEN: Soft, nontender, nondistended, normoactive bowel sounds, no guarding, no rebound, no hepatosplenomegaly, no masses, PEG tube, no skin changes around. EXTREMITIES: 2+ pulses, warm, well-perfused, no edema. NEUROLOGICAL: Cranial nerves II through XII grossly intact. Normal speech, gait not observed. PSYCH: Normal mood, normal affect. SKIN: Warm, dry, normal turgor, rash on LE. LABS HOSPITAL COURSE: Date of Admission:11/12/16 Date of Discharge: 11/20/16 Minutes to complete discharge: 30 Discharge Summary Reason For Visit: ASTHMA DOWN SYNDROME TRACHEITIS Current Active Problems Acute on chronic respiratory failure with hypoxia and hypercapnia (Acute) Anemia due to GI blood loss (Acute) Tracheitis (Acute) Airway clearance impairment (Chronic) Anemia (Chronic) Down syndrome (Chronic) Tracheostomy dependence (Chronic) Hospital Course: DC Diagnoses : 1- Hypoxia. 2- bronchitis 3- possible aspiration Pneumonitis 4- Possible upper GI bleed Hospital course: 61 y/o man with h/o Down's Syndrome with severe MR, COPD, asthma, chronic respiratory failure with trach (03/07/16), recent hospitalization for aspiration PNA , GERD, kyphosis, scoliosis, GI bleeds, PEG, anemia, sepsis and seizure d/ o who was transferred from [place] with hypoxia . initially on xcxray , there was a RLL opacity . He was started on Abx to cover HCAP /Asp PNA , then CT chest was obtained to clarify ( atelectasis vs infiltrate ) . CT showed no infiltrate . HIs hypoxia was thought to be due to mucus plugging and he needed frequent suctioning. He was continued on Abx though to cover Bronchitis . zosyn was used. sputum cx showed 3 organisms including 2 Non lactose fermenting bugs . the pt was dc on cipro and augmentin for 7 more days . if warranted final cx results are to be followed for further ABx adjustment the patient was seen by palliative care , and it turned out he was made hospice at previous dc to [place] and he is going to be readmitted. Sister , was contacted and was agreeable to hospice, ALso she agreed to Abx if felt needed by MD. On admission, he was found with coffee ground substance around PEG and was started on PPI gtt then IV PPI , Due to the option of hospice and no further aggressive mgt , he was not seen by GI. His hb was stable and he did not show further signs of GI bleed Dispo : Hospice at [place] Condition: Guarded - Instructions Diet, Activity, Other Instructions: use nebulizers as needed suction the tracheal secretions frequently as needed ( at least 5 times a day ) Tube Feeding: Jevity 1.5 @ 45 cc /hr ( goal ) . with 10 cc/hr free water Referrals: Landry Thomas Jr [Primary Care Provider] - Disposition: INTERMEDIATE FACILITY - Home Medications Comprehensive Discharge Medication List: Ambulatory Orders Albuterol 2.5/Ipratropium 0.5 [Duoneb -] 1 neb IH QID 05/02/16 Levetiracetam [Keppra Oral Solution -] 500 mg GT BID 05/02/16 Glycopyrrolate [Robinul -] 1 mg GT TID 05/03/16 Magnesium Hydrox 2400MG/30Ml [Milk of Magnesia -] 30 ml GT DAILY PRN 05/03/16 Metoclopramide HCl 10 mg GT BID 05/03/16 Zinc Oxide 1 applic TP BID PRN 05/03/16 Montelukast Na [Singulair -] 10 mg GT HS 07/21/16 Budesonide [Pulmicort 0.25 mg Nebulizer -] 1 neb NEB BID 08/27/16 Clotrimazole [Lotrimin -] 1 applic TP BID 08/27/16 Ranitidine [Zantac -] 150 mg GT BID 08/27/16 Scopolamine Hydrobromide [Transderm-Scop -] 1 patch TD Q72H 08/27/16 Sucralfate Oral Suspension [Carafate Oral Suspension -] 1 gm GT BID 08/27/16 Bisacodyl Suppository [Dulcolax Suppository -] 10 mg RC DAILY PRN 11/12/16 Cholestyramine/Aspartame [Questran Light Packet -] 4 gm GT BID 11/12/16 Ferrous Sulfate [Feosol] 325 mg GT BID 11/12/16 Lactobacillus Acidophilus [Acidophilus] 1 each GT DAILY 11/12/16 Silver Sulfadiazine 1% Top Cr [Silvadene -] 1 applic TP BID 11/12/16 Prednisone 10 mg PO ASDIR #1 tablet 11/14/16 Levetiracetam [Keppra Oral Solution -] 500 mg GT BID cup 11/20/16 Prednisone [Deltasone -] 10 mg GT DAILY tablet 11/20/16 Problem List - Problems (1) Acute on chronic respiratory failure with hypoxia and hypercapnia Code(s): J96.21 - ACUTE AND CHRONIC RESPIRATORY FAILURE WITH HYPOXIA J96.22 - ACUTE AND CHRONIC RESPIRATORY FAILURE WITH HYPERCAPNIA (2) Anemia due to GI blood loss Code(s): D50.0 - IRON DEFICIENCY ANEMIA SECONDARY TO BLOOD LOSS (CHRONIC) (3) Down syndrome Code(s): Q90.9 - DOWN SYNDROME, UNSPECIFIED (4) Tracheostomy dependence Code(s): Z93.0 - TRACHEOSTOMY STATUS This patient is new to me today: No Emergency Visit: Yes ED Registration Date: 11/12/16 Care time: The patient presented to the Emergency Department on the above date and was hospitalized for further evaluation of their emergent condition. Critical Care patient: No - Discharge Referral Referred to [facility] Med P.C.: No
--- NOTE | 2016-11-20 14:40 | PN ---
Progress Note, Physician History of Present Illness: stable secretions still present whitish in color has remained stable - Current Medication List Current Medications: Active Medications Albuterol/Ipratropium (Duoneb -) 1 amp NEB QIDR [facility] Last Admin: 11/20/16 11:22 Dose: 1 amp Albuterol/Ipratropium (Duoneb -) 1 amp NEB Q4H PRN PRN Reason: SHORTNESS OF BREATH Bisacodyl (Dulcolax Suppository -) 10 mg RC DAILY PRN PRN Reason: CONSTIPATION Last Admin: 11/12/16 13:01 Dose: 10 mg Budesonide (Pulmicort 0.25 Mg Nebulizer -) 1 amp NEB BID [facility] Last Admin: 11/20/16 10:50 Dose: 1 amp Cholestyramine Resin (Questran Light Packet -) 4 gm GT BID [facility] Last Admin: 11/20/16 09:06 Dose: 4 gm Clotrimazole (Lotrimin 1% Solution -) 1 applic TP BID [facility] Last Admin: 11/20/16 09:06 Dose: 1 applic Glycopyrrolate (Robinul -) 1 mg GT TID [facility] Last Admin: 11/20/16 06:46 Dose: 1 mg Hydrocortisone (Hytone 1% Cream -) 1 applic TP Q12H PRN PRN Reason: WOUND CARE Last Admin: 11/19/16 22:12 Dose: 1 applic Levetiracetam (Keppra Oral Solution -) 500 mg GT BID [facility] Last Admin: 11/20/16 09:06 Dose: 500 mg Magnesium Hydroxide (Milk Of Magnesia -) 30 ml GT DAILY PRN PRN Reason: CONSTIPATION Last Admin: 11/16/16 18:11 Dose: 30 ml Montelukast Sodium (Singulair -) 10 mg GT HS [facility] Last Admin: 11/19/16 22:10 Dose: 10 mg Ranitidine HCl (Zantac Oral Solution -) 150 mg GT BID [facility] Last Admin: 11/20/16 09:05 Dose: 150 mg Scopolamine HBr (Transderm-Scop -) 1 patch TD Q72H [facility] Last Admin: 11/18/16 11:34 Dose: 1 patch Silver Sulfadiazine (Silvadene -) 1 applic TP BID [facility] Last Admin: 11/20/16 09:07 Dose: 1 applic Sucralfate (Carafate Oral Suspension -) 1 gm GT BID [facility] Last Admin: 11/20/16 09:05 Dose: 1 gm - Objective Vital Signs: Vital Signs Temperature 68.2 F L 11/20/16 05:46 Pulse Rate 85 11/20/16 11:22 Respiratory Rate 20 11/20/16 05:46 Blood Pressure 106/72 11/20/16 05:46 O2 Sat by Pulse Oximetry (%) 97 11/20/16 11:22 Constitutional: Yes: No Distress, Calm Neck: Yes: Supple Cardiovascular: Yes: Regular Rate and Rhythm Respiratory: Yes: Regular, Poor Air Entry, Other (trach in place) Gastrointestinal: Yes: Normal Bowel Sounds, Soft Musculoskeletal: Yes: WNL Extremities: Yes: WNL Neurological: Yes: Alert, Other Psychiatric: Yes: Alert Labs: CBC, BMP 11/12/16 07:45 11/12/16 07:45 Assessment/Plan pna r/o influenza copd anemia MR fever mdro organism/esbl plan abx can be stopped when patient is discharged continue supportive measures continue suctioning can stop abx after tomorrows dose
[2016-11-20] MEDS: MONTELUKAST NA 10 MG TABLET GT SCH (22:51)
[2016-11-21] MEDS ORDERED: PT OWN MED DRAWER 7, Y5N ONE ×2 (05:39→09:47)
[2016-11-21] MEDS: GLYCOPYRROLATE 1 MG TABLET GT SCH (05:46)
[2016-11-21] MEDS: ALBUTEROL SO4 2.5/IPRATROPIUM 0.5 INH SOL 3 ML VIAL.NEB. NEB SCH ×2 (06:56→11:00)
[2016-11-21] MEDS: CLOTRIMAZOLE 1%TOPICAL SOLUTION 30 ML BOTTLE TP SCH (09:53)
[2016-11-21] MEDS: RANITIDINE HCL 150 MG/10 ML UNIT-DOSE CUP GT SCH (09:53)
[2016-11-21] MEDS: levETIRAcetam 500 MG/5 ML ORAL SOLUTION (UNIT-DOSE CUPS) GT SCH (09:53)
[2016-11-21] MEDS: CHOLESTYRAMINE/ASPARTAME 4 GM PACKET GT SCH (09:53)
[2016-11-21] MEDS: SUCRALFATE 1 GM/10 ML UNIT DOSE CUPS GT SCH (09:53)
[2016-11-21] MEDS: SILVER SULFADIAZINE 1% TOP CREAM 400 GM JAR TP SCH (09:54)
[2016-11-21] MEDS: SCOPOLAMINE HYDROBROMIDE 1 PATCH PATCH.TD72 TD SCH (09:55)
[2016-11-21] MEDS: BUDESONIDE 0.25 MG/2ML INH SUSP VIAL NEB SCH (10:26)
[2016-11-21 10:30] VITALS: PULSE 72
--- NOTE | 2016-11-21 11:01 | DS ---
Physical Examination Vital Signs: See the discharge note on 11/20/2016. Patient is comfortable can go back to [facility]. No bed was available on 11/20/2016. Discussed with on 11/20/2016 Temperature 98.1 F 11/21/16 05:57 Pulse Rate 72 11/21/16 10:29 Respiratory Rate 20 11/21/16 05:57 Blood Pressure 115/64 11/21/16 05:57 O2 Sat by Pulse Oximetry (%) 100 11/21/16 10:29 CBCD WBC 5.7 K/mm3 (4.0-10.0) 11/12/16 07:45 RBC 3.45 M/mm3 (4.00-5.60) L 11/12/16 07:45 Hgb 9.9 GM/dL (11.7-16.9) L 11/12/16 07:45 Hct 31.5 % (35.4-49) L 11/12/16 07:45 MCV 91.3 fl (80-96) 11/12/16 07:45 MCHC 31.4 g/dl (32.0-35.9) L 11/12/16 07:45 RDW 18.5 % (11.9-15.9) H 11/12/16 07:45 Plt Count 315 K/MM3 (134-434) 11/12/16 07:45 MPV 8.4 fl (7.5-11.1) 11/12/16 07:45 CMP Sodium 140 mmol/L (136-145) 11/12/16 07:45 Potassium 5.1 mmol/L (3.5-5.1) D 11/12/16 07:45 Chloride 105 mmol/L (98-107) 11/12/16 07:45 Carbon Dioxide 29 mmol/L (21-32) 11/12/16 07:45 Anion Gap 6 (8-16) L 11/12/16 07:45 BUN 13 mg/dL (7-18) 11/12/16 07:45 Creatinine 0.8 mg/dL (0.7-1.3) D 11/12/16 07:45 Creat Clearance w eGFR > 60 (>60) 11/12/16 00:27 Random Glucose 124 mg/dL (74-106) H D 11/12/16 07:45 Calcium 8.3 mg/dL (8.5-10.1) L 11/12/16 07:45 Total Bilirubin 0.2 mg/dL (0.2-1.0) D 11/12/16 00:27 AST 18 U/L (15-37) 11/12/16 00:27 ALT 25 U/L (12-78) D 11/12/16 00:27 Alkaline Phosphatase 71 U/L (45-117) D 11/12/16 00:27 Total Protein 6.0 g/dl (6.4-8.2) L 11/12/16 00:27 Albumin 2.5 g/dl (3.4-5.0) L 11/12/16 00:27 CARDIAC ENZYMES Creatine Kinase 158 IU/L (39-308) 11/12/16 00:27 Troponin I < 0.02 ng/ml (0.00-0.05) D 11/12/16 00:27 Current Medications Generic Name Dose Route Start Last Admin Trade Name Freq PRN Reason Stop Dose Admin Albuterol/Ipratropium 1 amp 11/12/16 06:00 11/21/16 06:56 Duoneb - NEB 1 amp QIDR ERIN Administration Albuterol/Ipratropium 1 amp 11/12/16 10:25 Duoneb - NEB Q4H PRN SHORTNESS OF BREATH Bisacodyl 10 mg 11/12/16 05:19 11/12/16 13:01 Dulcolax Suppository - RC 10 mg DAILY PRN Administration CONSTIPATION Budesonide 1 amp 11/12/16 10:00 11/21/16 10:26 Pulmicort 0.25 Mg Nebulizer - NEB 1 amp BID ERIN Administration Cholestyramine Resin 4 gm 11/12/16 10:00 11/21/16 09:53 Questran Light Packet - GT 4 gm BID ERIN Administration Clotrimazole 1 applic 11/12/16 10:00 11/21/16 09:53 Lotrimin 1% Solution - TP 1 applic BID ERIN Administration Glycopyrrolate 1 mg 11/12/16 06:00 11/21/16 05:46 Robinul - GT 1 mg TID ERIN Administration Hydrocortisone 1 applic 11/19/16 09:59 11/19/16 22:12 Hytone 1% Cream - TP 1 applic Q12H PRN Administration WOUND CARE Levetiracetam 500 mg 11/14/16 22:00 11/21/16 09:53 Keppra Oral Solution - GT 500 mg BID ERIN Administration Magnesium Hydroxide 30 ml 11/12/16 05:19 11/16/16 18:11 Milk Of Magnesia - GT 30 ml DAILY PRN Administration CONSTIPATION Montelukast Sodium 10 mg 11/12/16 22:00 11/20/16 22:51 Singulair - GT 10 mg HS ERIN Administration Ranitidine HCl 150 mg 11/12/16 10:00 11/21/16 09:53 Zantac Oral Solution - GT 150 mg BID ERIN Administration Scopolamine HBr 1 patch 11/12/16 10:00 11/21/16 09:55 Transderm-Scop - TD 1 patch Q72H ERIN Administration Silver Sulfadiazine 1 applic 11/12/16 10:00 11/21/16 09:54 Silvadene - TP 1 applic BID ERIN Administration Sucralfate 1 gm 11/12/16 10:00 11/21/16 09:53 Carafate Oral Suspension - GT 1 gm BID ERIN Administration Medication Instructions Recorded Albuterol 2.5/Ipratropium 0.5 1 neb IH QID 05/02/16 [Duoneb -] Levetiracetam [Keppra Oral 500 mg GT BID 05/02/16 Solution -] Glycopyrrolate [Robinul -] 1 mg GT TID 05/03/16 Magnesium Hydrox 2400MG/30Ml [Milk 30 ml GT DAILY PRN 05/03/16 of Magnesia -] Metoclopramide HCl 10 mg GT BID 05/03/16 Zinc Oxide 1 applic TP BID PRN 05/03/16 Montelukast Na [Singulair -] 10 mg GT HS 07/21/16 Budesonide [Pulmicort 0.25 mg 1 neb NEB BID 08/27/16 Nebulizer -] Clotrimazole [Lotrimin -] 1 applic TP BID 08/27/16 Ranitidine [Zantac -] 150 mg GT BID 08/27/16 Scopolamine Hydrobromide 1 patch TD Q72H 08/27/16 [Transderm-Scop -] Sucralfate Oral Suspension 1 gm GT BID 08/27/16 [Carafate Oral Suspension -] Bisacodyl Suppository [Dulcolax 10 mg RC DAILY PRN 11/12/16 Suppository -] Cholestyramine/Aspartame [Questran 4 gm GT BID 11/12/16 Light Packet -] Ferrous Sulfate [Feosol] 325 mg GT BID 11/12/16 Lactobacillus Acidophilus 1 each GT DAILY 11/12/16 [Acidophilus] Silver Sulfadiazine 1% Top Cr 1 applic TP BID 11/12/16 [Silvadene -] Levetiracetam [Keppra Oral 500 mg GT BID cup 11/20/16 Solution -] Labs: CBC, BMP 11/12/16 07:45 11/12/16 07:45 Discharge Summary Reason For Visit: ASTHMA DOWN SYNDROME TRACHEITIS Current Active Problems Acute on chronic respiratory failure with hypoxia and hypercapnia (Acute) Anemia due to GI blood loss (Acute) Tracheitis (Acute) Airway clearance impairment (Chronic) Anemia (Chronic) Down syndrome (Chronic) Tracheostomy dependence (Chronic) Condition: Guarded - Instructions Diet, Activity, Other Instructions: use nebulizers as needed suction the tracheal secretions frequently as needed ( at least 5 times a day ) Tube Feeding: Jevity 1.5 @ 45 cc /hr ( goal ) . with 10 cc/hr free water Referrals: Landry Thomas Jr [Primary Care Provider] - Disposition: [facility]ILITY - Home Medications Comprehensive Discharge Medication List: Ambulatory Orders Albuterol 2.5/Ipratropium 0.5 [Duoneb -] 1 neb IH QID 05/02/16 Levetiracetam [Keppra Oral Solution -] 500 mg GT BID 05/02/16 Glycopyrrolate [Robinul -] 1 mg GT TID 05/03/16 Magnesium Hydrox 2400MG/30Ml [Milk of Magnesia -] 30 ml GT DAILY PRN 05/03/16 Metoclopramide HCl 10 mg GT BID 05/03/16 Zinc Oxide 1 applic TP BID PRN 05/03/16 Montelukast Na [Singulair -] 10 mg GT HS 07/21/16 Budesonide [Pulmicort 0.25 mg Nebulizer -] 1 neb NEB BID 08/27/16 Clotrimazole [Lotrimin -] 1 applic TP BID 08/27/16 Ranitidine [Zantac -] 150 mg GT BID 08/27/16 Scopolamine Hydrobromide [Transderm-Scop -] 1 patch TD Q72H 08/27/16 Sucralfate Oral Suspension [Carafate Oral Suspension -] 1 gm GT BID 08/27/16 Bisacodyl Suppository [Dulcolax Suppository -] 10 mg RC DAILY PRN 11/12/16 Cholestyramine/Aspartame [Questran Light Packet -] 4 gm GT BID 11/12/16 Ferrous Sulfate [Feosol] 325 mg GT BID 11/12/16 Lactobacillus Acidophilus [Acidophilus] 1 each GT DAILY 11/12/16 Silver Sulfadiazine 1% Top Cr [Silvadene -] 1 applic TP BID 11/12/16 Levetiracetam [Keppra Oral Solution -] 500 mg GT BID cup 11/20/16 This patient is new to me today: No Emergency Visit: Yes ED Registration Date: 11/12/16 Care time: The patient presented to the Emergency Department on the above date and was hospitalized for further evaluation of their emergent condition. Critical Care patient: No - Discharge Referral Referred to [facility] Med P.C[facility] No
[2016-11-21 11:54] VITALS: BP 130/65; TEMP 98
== END 2016-11-21 11:39 | disposition home or self-care (01) | DRG 189 ==
LOC: JER 23:38 → JERBED 11-12 01:50 → UNDOADMIN 11-12 01:50 → JERBED 11-12 02:51 → J4S 11-12 04:19 → J8W 11-12 18:52
PROVIDERS: ADMIT Internal Medicine; ATTEND Internal Medicine
DX: J96.21 Acute and chronic respiratory failure with hypoxia (principal); J69.0 Pneumonitis due to inhalation of food and vomit; D62 Acute posthemorrhagic anemia; J98.11 Atelectasis; J44.1 Chronic obstructive pulmonary disease with (acute) exacerbation; Q90.9 Down syndrome, unspecified; Z93.0 Tracheostomy status; K21.9 Gastro-esophageal reflux disease without esophagitis; J20.9 Acute bronchitis, unspecified; F79 Unspecified intellectual disabilities; G40.909 Epilepsy, unspecified, not intractable, without status epilepticus; J06.9 Acute upper respiratory infection, unspecified; J96.22 Acute and chronic respiratory failure with hypercapnia
CPT/HCPCS: 36415; 71010-TC; 71250-TC; 80048; 80053; 81003; 82272; 82550; 82553; 83605; 83735; 83880; 84100; 84484; 85025; 85027; 87040; 87070; 87086; 87186; 87205; 87254; 87804; 87899; 93005; 93010; 94640; 97163-GP; 99281-25